=== PATIENT | male | born 1955 | race Caucasian/White ===

== ENCOUNTER 2017-07-15 13:56 | Emergency (ER) | payer OTHER ==
[~2017-07-15] VITALS: Ht 152.4 cm; Wt 68.0 kg
[2017-07-15 16:39] VITALS: Ht 152.4 cm; Wt 68.0 kg
[2017-07-15 20:01] VITALS: BP 174/92
== END 2017-07-15 20:01 | disposition home or self-care (01) ==
LOC: ED 13:56
DX: J98.01 Acute bronchospasm (principal); I10 Essential (primary) hypertension; E11.9 Type 2 diabetes mellitus without complications; L03.115 Cellulitis of right lower limb
CPT/HCPCS: 82962; J1100; J7620

== ENCOUNTER 2017-08-22 16:40 | Inpatient (IN) | payer OTHER ==
[~2017-08-22] VITALS: Ht 167.6 cm; Wt 65.3 kg
[2017-08-22] MEDS ORDERED: NOR10T (18:41)
[2017-08-22] MEDS ORDERED: METFORMIN HYDR500 M1 (18:41)
[2017-08-22] MEDS ORDERED: GLIPIZIDE2.5 M1 (18:41)
[2017-08-22] MEDS ORDERED: ATORVASTATIN CA40 M1 (18:41)
[2017-08-22 18:45] LABS: BASOPHIL % 0.4 % (0-2); PLATELET COUNT 155 x10^3mcL (130-400); RED CELL DISTRIBUTION WIDTH 12.8 % (11.5-14.5)
[2017-08-22 19:02] LABS: CALCIUM 9.1 mg/dL (8.5-10.1); CARBON DIOXIDE 27.7 mmol/L (21-32); CHLORIDE SERUM 99 mmol/L (98-107); CREATININE SERUM 0.7 mg/dL (0.7-1.3); GFR1 > 60 mL/min; GLUCOSE SERUM 315 mg/dL (74-106); POTASSIUM SERUM 3.7 mmol/L (3.5-5.1); SODIUM SERUM 137 mmol/L (136-145)
[2017-08-22 19:05] LABS: CK-MB 0.5 ng/mL (0-3.6)
[2017-08-22 19:15] LABS: ALKALINE PHOSPHATASE 100 U/L (46-116); ALT/SGPT 15 U/L (16-63); AST/SGOT 11 U/L (15-37); BILIRUBIN TOTAL 0.7 mg/dL (0.20-1.00); TOTAL PROTEIN, SERUM 7.5 g/dL (6.4-8.2)
[2017-08-22 19:19] LABS: ALBUMIN 3.2 g/dL (3.4-5.0)
[2017-08-22 19:24] LABS: ERYTHROCYTE SED RATE 54 mm/hr (0-20)
[2017-08-22 19:41] LABS: T3 TOTAL 0.54 ng/mL
[2017-08-22 19:58] LABS: C REACTIVE PROTEIN 19.4 mg/dL (<=0.9)
[2017-08-22 20:31] LABS: UA SPECIFIC GRAVITY 1.025 (1.005-1.035); microscopic required? YES; urine erythrocyte 2+ (NEGATIVE)
[2017-08-22 22:10] LABS: FREE T4 1.34 ng/dL (0.76-1.46); FREE THYROXINE INDEX 2.6 ug/dL (1.4-4.5); T4(THYROXINE) 7.2 ug/dL (4.7-13.3)
[2017-08-23 00:02] VITALS: BP 128/84
[2017-08-23 00:03] VITALS: BP 128/84
[2017-08-23 05:36] VITALS: BP 110/57
[2017-08-23] MEDS ORDERED: LIPI20 PO ×2 (05:53→13:16)
[2017-08-23 07:02] LABS: BASOPHIL % 0.4 % (0-2); PLATELET COUNT 132 x10^3mcL (130-400); RED CELL DISTRIBUTION WIDTH 12.8 % (11.5-14.5)
[2017-08-23 08:22] LABS: CALCIUM 8.1 mg/dL (8.5-10.1); CARBON DIOXIDE 26.6 mmol/L (21-32); CHLORIDE SERUM 103 mmol/L (98-107); CREATININE SERUM 0.6 mg/dL (0.7-1.3); GFR1 > 60 mL/min; GLUCOSE SERUM 217 mg/dL (74-106); MAGNESIUM 1.8 mg/dL (1.8-2.4); PHOSPHOROUS 2.4 mg/dL (2.5-4.9); POTASSIUM SERUM 3.5 mmol/L (3.5-5.1); SODIUM SERUM 138 mmol/L (136-145)
[2017-08-23 09:05] LABS: PHOSPHOROUS 2.8 mg/dL (2.5-4.9)
[2017-08-23 09:24] LABS: CHOLESTEROL/HDL RATIO 1.8
[2017-08-23 10:11] VITALS: BP 157/87
[2017-08-23] MEDS ORDERED: APAP/HYDROCODON1 T13 PO (13:16)
[2017-08-23] MEDS ORDERED: NPHOS PO (13:17)
[2017-08-23] MEDS ORDERED: BG FS (13:17)
[2017-08-23] MEDS ORDERED: TYL325 PO (13:17)
[2017-08-23] MEDS ORDERED: DEXPF IV (13:17)
[2017-08-23] MEDS ORDERED: COL100 PO (13:17)
[2017-08-23] MEDS ORDERED: LEVEMIR100 U/M1 SC (13:18)
[2017-08-23] MEDS ORDERED: ZOFI IV (13:18)
[2017-08-23] MEDS ORDERED: HUMULIN R100 U/1 M1 SC (13:18)
[2017-08-23] MEDS ORDERED: LAC PO (13:18)
[2017-08-23 16:56] VITALS: BP 134/77
[2017-08-23 17:49] VITALS: BP 134/77
[2017-08-23] MEDS ORDERED: CLEOCIN HCL300 MG PO (17:51)
[2017-08-23] MEDS ORDERED: NOVAPLUS LEVOF150 ML IV (17:51)
== END 2017-08-23 18:55 | disposition short-term general hospital (02) | DRG 570 ==
LOC: ED 16:40 → DU 22:42 → MU 08-23 16:33
PROVIDERS: Family Medicine; Specialist
PROC: 0JBR0ZZ Excision of Left Foot Subcutaneous Tissue and Fascia, Open Approach (ICD-10-PCS; principal; 2017-08-23)
DX: L03.116 Cellulitis of left lower limb (principal); N17.0 Acute kidney failure with tubular necrosis; E44.1 Mild protein-calorie malnutrition; I10 Essential (primary) hypertension; E11.65 Type 2 diabetes mellitus with hyperglycemia; E78.5 Hyperlipidemia, unspecified; D64.9 Anemia, unspecified; Z68.23 Body mass index [BMI] 23.0-23.9, adult; R31.9 Hematuria, unspecified; E83.39 Other disorders of phosphorus metabolism; E11.621 Type 2 diabetes mellitus with foot ulcer; L97.529 Non-pressure chronic ulcer of other part of left foot with unspecified severity
CPT/HCPCS: 36600; 82962; 83880; 84439; 90715; J1815; J1956; J2543; J3490; J7030; Q0092

== ENCOUNTER 2019-08-17 17:47 | Emergency (ER) | payer OTHER, MEDICAID ==
[~2019-08-17 17:47] MED LIST: APAP/HYDROCODON1 T13 PO; ATORVASTATIN CA40 M1; BG FS; CLEOCIN HCL300 MG PO; COL100 PO; DEXPF IV; GLIPIZIDE2.5 M1; HUMULIN R100 U/1 M1 SC; LAC PO; LEVEMIR100 U/M1 SC; LIPI20 PO; METFORMIN HYDR500 M1; NOR10T; NOVAPLUS LEVOF150 ML IV; NPHOS PO; TYL325 PO; ZOFI IV
[2019-08-17 19:10] LABS: BASOPHIL % 0.2 % (0-2); PLATELET COUNT 195 x10^3mcL (130-400); RED CELL DISTRIBUTION WIDTH 12.3 % (11.5-14.5)
[2019-08-17 19:18] LABS: CALCIUM 8.7 mg/dL (8.5-10.1); CARBON DIOXIDE 28.2 mmol/L (21-32); CHLORIDE SERUM 95 mmol/L (98-107); CREATININE SERUM 0.9 mg/dL (0.7-1.3); GFR1 > 60 mL/min; GLUCOSE SERUM 400 mg/dL (74-106); POTASSIUM SERUM 3.8 mmol/L (3.5-5.1); SODIUM SERUM 131 mmol/L (136-145)
[2019-08-17 19:28] LABS: ALKALINE PHOSPHATASE 99 U/L (46-116); ALT/SGPT 12 U/L (16-63); AST/SGOT 8 U/L (15-37); BILIRUBIN TOTAL 0.59 mg/dL (0.20-1.00); HDL CHOLESTEROL 46 mg/dL (40-60); TOTAL PROTEIN, SERUM 7.3 g/dL (6.4-8.2)
[2019-08-17 19:28] LABS: microscopic required? YES; urine erythrocyte 2+ (NEGATIVE)
[2019-08-17 19:31] LABS: CHOLESTEROL 107 mg/dL (<200)
[2019-08-17 23:11] VITALS: BP 121/65
== END 2019-08-18 01:15 | disposition short-term general hospital (02) ==
LOC: ED 17:47
PROVIDERS: Emergency Medicine
DX: E11.65 Type 2 diabetes mellitus with hyperglycemia (principal); L03.031 Cellulitis of right toe; R50.9 Fever, unspecified; I10 Essential (primary) hypertension
CPT/HCPCS: 82962; 87804; J1815; J7030

== ENCOUNTER 2019-08-24 12:15 | Emergency (ER) | payer OTHER, MEDICAID ==
[~2019-08-24] VITALS: Ht 154.9 cm; Wt 69.4 kg
[2019-08-24 12:22] VITALS: Ht 154.9 cm; Wt 69.4 kg
[2019-08-24 12:57] LABS: BASOPHIL % 0.2 % (0-2); PLATELET COUNT 244 x10^3mcL (130-400); RED CELL DISTRIBUTION WIDTH 12.2 % (11.5-14.5)
[2019-08-24 13:03] LABS: CALCIUM 8.1 mg/dL (8.5-10.1); CARBON DIOXIDE 25.5 mmol/L (21-32); CHLORIDE SERUM 100 mmol/L (98-107); CREATININE SERUM 0.7 mg/dL (0.7-1.3); GFR1 > 60 mL/min; GLUCOSE SERUM 194 mg/dL (74-106); POTASSIUM SERUM 3.4 mmol/L (3.5-5.1); SODIUM SERUM 139 mmol/L (136-145)
[2019-08-24 13:12] LABS: ALBUMIN 2.2 g/dL (3.4-5.0); ALKALINE PHOSPHATASE 90 U/L (46-116); ALT/SGPT 25 U/L (16-63); AST/SGOT 42 U/L (15-37); BILIRUBIN TOTAL 0.6 mg/dL (0.20-1.00); TOTAL PROTEIN, SERUM 6.6 g/dL (6.4-8.2)
[2019-08-24 15:57] VITALS: BP 147/69
== END 2019-08-24 15:57 | disposition short-term general hospital (02) ==
LOC: ED 12:15
PROVIDERS: Emergency Medicine
DX: A41.9 Sepsis, unspecified organism (principal); E11.52 Type 2 diabetes mellitus with diabetic peripheral angiopathy with gangrene; I96 Gangrene, not elsewhere classified; I10 Essential (primary) hypertension
CPT/HCPCS: 82962; 87804; J2543; J7030

== ENCOUNTER 2020-01-31 18:03 | Inpatient (IN) | payer OTHER, MEDICAID ==
[~2020-01-31] VITALS: Ht 152.4 cm; Wt 67.1 kg
--- NOTE | 2020-01-31 18:08 | NUR ---
PT BIBA FROM HOME DUE TO INCREASED DIZZINESS AND LETHARGY. PER MEDIC PT WAS HYPOTENSIVE IN FEILD SYS 80S THEN TO 123 SYS. PER MEDIC PT WAS PALE COOL DIAPHORETIC, BG 142. MEDIC STS THAT HE GAVE 100CC BOLUS NS. PT ARRIVED AAOX4, VSS, RESP E/U. PT STS THAT HE HAS RANDALL FLANK PAIN WITH DIARRHEA FOR 2 DAYS. PT STS THAT HE WENT TO THE [facility] 2 MONTHS AGO AND "WAS NOT SICK". PT STS THAT HE WAS RELEASED FROM THE HOSPITAL ON SUNDAY AND HAS NOT FELT BETTER SINCE. PT STS THAT HE "HIT HIS RT FOOT" AND THATS WHY HE WAS HOSPITALIZED. NOTED EDEMA TO RT FOOT. VSS. RESP E/U. WILL CONTINUE TO MONITOR.
--- NOTE | 2020-01-31 18:43 | NUR ---
PT ATTMEPTING TO URINATE.
[2020-01-31 18:50] LABS: BASOPHIL % 0.3 % (0-2); PLATELET COUNT 145 x10^3mcL (130-400)
[2020-01-31 18:54] LABS: microscopic required? NO
[2020-01-31 19:00] LABS: urine erythrocyte NEGATIVE (NEGATIVE)
--- NOTE | 2020-01-31 19:02 | NUR ---
URINE SENT TO LAB.
--- NOTE | 2020-01-31 19:16 | NUR ---
REPORT GIVEN TO EDMUNDO ESPINOZA TO ASSUME CARE OF PT.
--- NOTE | 2020-01-31 19:22 | NUR ---
ASSUMING CARE OF PT AT THIS TIME. PT AWAKE AND ALERT. A/O TO NAME, . RESP EVEN AND U NLABORED. PT STATES THAT CHRONIC BACK PAIN 11/22. AWARE. PT ON MONITOR. NO ACUTE DISTRESS AT THIS TIME. WILL CONT TO MONITOR.
[2020-01-31 19:35] LABS: CALCIUM 8.8 mg/dL (8.5-10.1); CARBON DIOXIDE 19.1 mmol/L (21-32); CHLORIDE SERUM 106 mmol/L (98-107); CREATININE SERUM 2.3 mg/dL (0.7-1.3); GFR1 30 mL/min; GLUCOSE SERUM 147 mg/dL (74-106); POTASSIUM SERUM 4.9 mmol/L (3.5-5.1); SODIUM SERUM 143 mmol/L (136-145)
--- NOTE | 2020-01-31 19:38 | NUR ---
PT MOVED TO BED 14.
[2020-01-31 19:51] LABS: ALBUMIN 3.5 g/dL (3.4-5.0); ALKALINE PHOSPHATASE 63 U/L (46-116); ALT/SGPT 16 U/L (16-63); AST/SGOT 21 U/L (15-37); BILIRUBIN TOTAL 0.4 mg/dL (0.20-1.00); C REACTIVE PROTEIN 5.9 mg/dL (<=0.9); HDL CHOLESTEROL 41 mg/dL (40-60); LACTIC DEHYDROGENASE (LDH) 226 U/L (100-190); LIPASE 189 IU/L (73-393); T4(THYROXINE) 6.3 ug/dL (4.7-13.3); TOTAL PROTEIN, SERUM 7.2 g/dL (6.4-8.2)
[2020-01-31 19:59] LABS: CHOLESTEROL 99 mg/dL (<200)
[2020-01-31 20:07] LABS: AMPHETAMINE QUAL UR NONE DETECTED (See below)
--- NOTE | 2020-01-31 20:18 | NUR ---
PT RESTING IN BED WITH NO SIGNS OF DISTRESS.
--- NOTE | 2020-01-31 20:41 | NUR ---
PT REFUSING TO HAVE IV FLUIDS/MEDS, STATING "NO, NO, NO. I WILL DESTROY IT, I WILL THROW IT AWAY." WILL INFORM
--- NOTE | 2020-01-31 21:12 | NUR ---
SPOKE WITH DR POSADA REGARDING PT REFUSING ALL MEDS/TESTS.
--- NOTE | 2020-01-31 21:20 | NUR ---
PT REFUSED ARTERIAL BLOOD GAS AT 20:20 WHILE IN ED.
--- NOTE | 2020-01-31 21:24 | NUR ---
DR POSADA AT BEDSIDE SPEAKING WITH PT.
--- NOTE | 2020-01-31 21:33 | NUR ---
ATTEMPTED TO CALL REPORT TO EDMUNDO ESPINOZA WHO STATED SHE WILL CALL BACK WHEN AVAILABLE.
--- NOTE | 2020-01-31 22:08 | NUR ---
PT STATING HE DOES NOT WANT TO STAY. MESSAGE WAS LEFT WITH POC/NEXT OF KIN TO CALL REGARDING SITUATION.
--- NOTE | 2020-01-31 22:24 | NUR ---
SPOKE WITH EDMUNDO ESPINOZA FOR REPORT AND MADE HER AWARE OF PT WANTING TO LEAVE AMA.
--- NOTE | 2020-01-31 22:24 | NUR ---
SPOKE WITH ER NURSE NESTOR REGARDING PATIENT WHO MAY BE ADMITTED. SHE STATED THAT PATIENT IS CURRENTLY REFUSING TREATMENT, PATIENT HAS HAD LEVAQUIN AND NORMAL SALINE INFUSION @ THIS TIME. SHE STATED THAT PATIENT DOES NOT WANT TO BE ADMITTED, RESIDENT PHYSICIAN HAS SPOKE WITH PATIENT REGARDING ADMISSION, PATIENT IS STILL REFUSING AND WISHES TO CALL FAMILY, CURRENTLY IN THE PROCESS OF TRYING TO CALL FAMILY. SHE STATED THAT SHE WILL CALL BACK TO INFORM IF PATIENT WILL BE ADMITTED OR NOT, WILL FOLLOW-UP.
--- NOTE | 2020-01-31 22:47 | NUR ---
ASSISTED PT RESTROOM. PT STILL REFUSING CARE AND BEING VERBALLY ABUSE WITH CAREGIVER.
--- NOTE | 2020-01-31 23:54 | NUR ---
PER MD POSADA PT DECIDED TO STAY IN HOSPITAL AND AGREED TO GET IV FLUIDS. PER MD POSADA GIVE PT TYLENOL FOR PAIN. PER SHE IS PUTTING IN A DIABETIC DIET ORDER FOR PT BUT IT IS OKAY TO PROVIDE PT WITH FOOD AT THIS TIME. PRIMARY RN VA MADE AWARE.
[2020-02-01 00:06] LABS: MAGNESIUM 1.9 mg/dL (1.8-2.4); PHOSPHOROUS 5.1 mg/dL (2.5-4.9)
[2020-02-01 00:12] LABS: CHOLESTEROL/HDL RATIO 2.5
--- NOTE | 2020-02-01 00:13 | NUR ---
PT NOW CALM AND COOPERATIVE WITH CAREGIVERS. PT AGREED TO TAKE ALL MEDICATIONS. PT GIVEN SANDWICH PER REQUEST AND OK WITH
--- NOTE | 2020-02-01 00:15 | NUR ---
EDMUNDO ESPINOZA GIVEN UPDATE ON PLAN OF CARE.
--- NOTE | 2020-02-01 00:18 | NUR ---
ER NURSE VA CALLED AND STATED THAT PATIENT IS MORE COOPERATIVE AND WILL BE ADMITTED.
--- NOTE | 2020-02-01 01:00 | NUR ---
0030 PATIENT ARRIVED VIA GURNEY FROM ER, ACCOMPANIED BY RN AND REPLANTER. 0100 PATIENT RESTING IN BED, A/O X4, VERBALLY RESPONSIVE. BREATHING E/U ON ROOM AIR, SPO2 97%, PRESENTS NO COUGH, R/O COVID PATIENT, PATIENT REFUSED COVID TEST SWAB, WILL NOTIFY PHYSICIAN. TELE#18, HR 114, SINUS TACHY, DENIES CHEST PAIN. ABD SOFT AND ROUND. NO EDEMA NOTED. PATIENT C/O OF 10/10 R FLANK PAIN, HE STATED THAT HE FEELS PAIN UPON MOVEMENT AND FEELS BETTER WHEN HE RESTS, WILL GIVE PAIN MED PRN. AMBULATORY, USES CANE @ BEDSIDE. 20G IV RFA INTACT, FLUSHED AND SALINE LOCKED. ORIENTED PATIENT TO SURROUNDINGS AND DEVICES, CALL LIGHT WITHIN REACH, BED IN LOWEST POSITION. WILL CONTINUE TO MONITOR.
--- NOTE | 2020-02-01 01:30 | NUR ---
PATIENT MOVED TO ROOM 235, ON DROPLET/CONTACT PRECAUTIONS FOR R/O COVID, PATIENT STILL REFUSED COVID TEST SWAB, STATING HE "DOES NOT WANT IT". WILL NOTIFY PHYSICIAN. CALL LIGHT WITHIN REACH, WILL CONTINUE TO MONITOR.
--- NOTE | 2020-02-01 01:55 | NUR ---
DR. BARRETT MADE AWARE OF PATIENT'S CURRENT CONDITION AND RECENT VITAL SIGNS. HE STATED TO GIVE IV BENADRYL 25 MG.
--- NOTE | 2020-02-01 03:01 | NUR ---
PATIENT HAD REFUSED COVID TEST SWAB AND THERE IS CURRENTLY NO MRSA SWAB ORDER IN PLACE. MADE A NOTE TO RESIDENT PHYSICIAN, WILL WAIT TO HEAR BACK AND FOLLOW-UP.
[2020-02-01 03:15] VITALS: BP 149/81
--- NOTE | 2020-02-01 04:40 | NUR ---
CALLED RESIDENT PHYSICIAN PHONE, DR. POSADA ANSWERED AND MADE AWARE THAT RESIDENT ROUNDING HASN'T BEEN DONE IN THE PAST FEW HOURS, AND THERE ARE ORDER REQEUSTS SINCE 229. SHE STATED THAT SHE WILL LET DR. MCLAUGHLIN KNOW.
--- NOTE | 2020-02-01 05:13 | NUR ---
DR. MCLAUGHLIN MADE AWARE OF PATIENT'S REFUSAL AND REQUEST TO CHANGE COVID TEST ORDER FROM ED TO INPATIENT WELL AND MY REQUEST FOR PHYSICIAN TO SPEAK WITH PATIENT REGARDING PATIENT'S REFUSAL.
[2020-02-01 05:25] VITALS: BP 118/66
--- NOTE | 2020-02-01 06:10 | NUR ---
PAGED DR. MLCAUGHLIN TO ASK IF HE WAS ABLE TO TALK WITH THE PATIENT REGARDING HIS REFUSAL FOR THE COVID TEST SWAB. WAITING TO HEAR BACK.
--- NOTE | 2020-02-01 06:20 | NUR ---
DR. MCLAUGHLIN SPOKE WITH PATIENT REGARDING REFUSAL OF COVID TEST SWAB. DR. MCLAUGHLIN STATED THAT PATIENT IS "OKAY" TO TAKE THE TEST. WILL ATTEMPT COVID TEST SWAB.
--- NOTE | 2020-02-01 06:30 | NUR ---
PATIENT RESTING IN BED WITH EYES CLOSED. BREATHING E/U ON ROOM AIR, 99%, ON DROPLET/CONTACT PRECAUTIONS, FOR R/O COVID, ATTEMPTED TO DO COVID TEST SWAB BUT PATIENT STATED THAT THEY ARE TIRED AND WANT TO GO TO SLEEP BEFORE CLOSING EYES, WILL ENDORSE TO DAY NURSE. GAVE NORCO PRN FOR R SIDE PAIN /. CALL LIGHT WITHIN REACH, SAFETY AND DROPLET PRECAUTIONS MAINTAINED THROUGHOUT SHIFT. WILL ENDORSE CARE TO DAY NURSE.
--- NOTE | 2020-02-01 07:05 | NUR ---
RECIEVED PT FROM NIGHT RN. AAOX4, SPEECH CLEAR. DENIES US/DIZZINESS. ALTHOUGH, INAPPROPRIATE RESPONSE AT TIMES. RES E/U, DENIES SOB ON RA. NO RESPIRATORY DISTRESS NOTED. TELE MONITOR 18 SHOWING SR, DENIES CP/PRESSURE. PERIPHERAL PULSES PALPABLE W NO EDEMA NOTED. ABDOMEN SOFT. DENIES ABDOMINAL PAIN. DENIES N/V/D/C. VOIDS IN BATHROOM WITHOUT DIFFICULTY. AMBULATORY AT BASELINE. IV SITE TO RFA INFUSING NS AT 100 ML/HR W NO S/S INFILTRATION NOTED.
[2020-02-01 09:11] VITALS: BP 113/68
[2020-02-01 16:40] VITALS: Ht 152.4 cm; Wt 67.1 kg
[2020-02-01 17:29] VITALS: BP 150/85
--- NOTE | 2020-02-01 19:36 | NUR ---
NO SIGNIFICANT CHANGES NOTED. PT IN BED WITHUOT APPARENT DISTRESS. WILL ENDORSE CARE TO NEXT SHIFT
--- NOTE | 2020-02-01 20:00 | NUR ---
PT A/A/O X4. DENIES DIZZINESS AND HEADACHE. BREATH SOUNDS CLEAR. BREATHING EVEN AND UNLABORED ON ROOM AIR. DENIES CHEST PAIN AND PRESSURE. BOWEL SOUNDS ACTIVE. NO C/O N/V AND ABD PAIN. IV INTACT ON THE RIGHT FOREARM INFUSING WITH NS AT 125 ML/HR. MADE PT COMFORTABLE. CANE AT BEDSIDE. PLACED CALL LIGHT WITH IN REACH. WILL CONTINUE TO MONITOR.
--- NOTE | 2020-02-01 20:48 | NUR ---
PT C/O BACK PAIN. GAVE PT NORCO PO. PT TOLERATED IT WELL. WILL CONTINUE TO MONITOR.
--- NOTE | 2020-02-01 21:00 | NUR ---
PT REFUSED TELE MONITOR TO BE PUT ON HIM. DR. MCKEON NOTIFIED AND SPOKE WITH THE PT. PT STILL REFUSE TO PUT TELE MONITOR ON. PT STATED "MY PROBLEM IS MY BACK NOT MY HEART. [facility] BEEN [facility] AND [facility] NEVER WORN IT. I DONT NEED IT". WILL CONTINUE TO MONITOR.
[2020-02-01 21:47] VITALS: BP 139/79
--- NOTE | 2020-02-02 01:45 | NUR ---
PT RESTING WITH EYES CLOSED. NO DISTRESS AND DISCOMFORT NOTED. WILL CONTINUE TO MONITOR.
[2020-02-02 05:10] VITALS: BP 136/71
--- NOTE | 2020-02-02 06:06 | NUR ---
PT RESTING WITH EYES CLOSED. AROUSABLE WITH VERBAL STIMULI. PT IRRITATED BEING WAKEN UP TO RECEIVE MEDICATION. PT STATED " LEAVE MEDICATION THERE." PT WANTED US TO LEAVE MEDICATION ON THE SIDE TABLE. INFORMED THE PT WE CAN NOT LEAVE UNLESS HE TAKES THE MEDICATION AND MEDICATION IS A SCHEDULED DOSE. PT C/O LIGHTS BEING TURNED ON AND NOT BEING LEFT ALONE. OFFERED THE GLIPIZIDE PO AGAIN. PT REFUSED TO TAKE IT SAYING HE IS SLEEPING. TOLD THE PT IF HE WONT TAKE MEDICATION. IT WILL BE CONSIDERED REFUSED BY YOU WITNESSED BY GORDON ESPINOZA. PT SAID OK. WILL ENDORSE TO THE AM NURSE ACCORDINGLY.
[2020-02-02 07:24] LABS: BASOPHIL % 0.5 % (0-2); PLATELET COUNT 137 x10^3mcL (130-400)
[2020-02-02 07:34] LABS: CALCIUM 8.3 mg/dL (8.5-10.1); CARBON DIOXIDE 22.3 mmol/L (21-32); CHLORIDE SERUM 111 mmol/L (98-107); CREATININE SERUM 0.8 mg/dL (0.7-1.3); GFR1 > 60 mL/min; GLUCOSE SERUM 134 mg/dL (74-106); MAGNESIUM 1.9 mg/dL (1.8-2.4); POTASSIUM SERUM 4.4 mmol/L (3.5-5.1); SODIUM SERUM 143 mmol/L (136-145)
[2020-02-02 07:58] LABS: RED CELL DISTRIBUTION WIDTH 16.5 % (11.5-14.5)
--- NOTE | 2020-02-02 08:00 | NUR ---
PT RECEIVED FROM PM NURSE. PT RESTING COMFORTABLY IN BED AT THIS TIME. NO FACIAL DISTRESS OR SOB NOTED. PT IS A/OX4. ABLE TO MAKE NEEDS KNOWN. DENIES US/DIZZINESS. LUNG SOUNDS CTA. BREATHING E/U ON RA. REFUSED TELE MONITOR. EXPLAINED RISKS/BENEFITS. STILL REFUSED. DR AWARE. DENIES CP/PRESSURE. PULSES EVEN AND PALPABLE. NO EDEMA NOTED. ACTIVE BS X4. ABD SOFT AND ROUND. DENIES N/V/D. VOIDS FREELY USING URINAL AT BEDSIDE. GENERALIZED WEAKNESS NOTED. AMBULATORY. CANE BASELINE. SKIN INTACT. NO C/O PAIN AT THIS TIME. IV 20G TO RFA CURRENTLY RUNNING 1/2 NS AT 125CC/HR. BED AT LOWEST POSITION. CALL BUTTON WITHIN REACH. WILL CONTINUE TO MONITOR.
[2020-02-02 10:43] VITALS: BP 161/84
[2020-02-02 12:20] VITALS: BP 161/84
--- NOTE | 2020-02-02 14:48 | NUR ---
REVIEWED DISCHARGE INSTRUCTIONS WITH PATIENT. PATIENT VERBALIZED UNDERSTANDING. PATIENT DISCHARGED VIA WHEELCHAIR WITH INSTRUCTIONS AND MEDICATIONS. IV REMOVED. TELE HANDED BACK TO HOME ASSESSMENT NURSE. PATIENT LEFT HOSPITAL TO HOME SELF CARE.
== END 2020-02-02 14:52 | disposition home or self-care (01) | DRG 640 ==
LOC: ED 18:03 → DU 20:24
PROVIDERS: Emergency Medicine; ADMIT Internal Medicine; ATTEND Internal Medicine
DX: E86.0 Dehydration (principal); N17.0 Acute kidney failure with tubular necrosis; N18.4 Chronic kidney disease, stage 4 (severe); I45.10 Unspecified right bundle-branch block; I12.9 Hypertensive chronic kidney disease with stage 1 through stage 4 chronic kidney disease, or unspecified chronic kidney disease; E11.22 Type 2 diabetes mellitus with diabetic chronic kidney disease; D64.9 Anemia, unspecified; G89.29 Other chronic pain; M54.9 Dorsalgia, unspecified; Z89.411 Acquired absence of right great toe; Z79.84 Long term (current) use of oral hypoglycemic drugs; Z79.899 Other long term (current) drug therapy
CPT/HCPCS: 82962; 83880; 87804; G0378; J1956; J7030; Q0092; U0003-CS

== ENCOUNTER 2020-02-03 19:40 | Emergency (ER) | payer OTHER, MEDICAID ==
[~2020-02-03] VITALS: Ht 152.4 cm; Wt 67.1 kg
[2020-02-03 19:44] VITALS: Ht 152.4 cm; Wt 67.1 kg
[2020-02-03 20:21] LABS: BASOPHIL % 0.5 % (0-2); PLATELET COUNT 183 x10^3mcL (130-400); RED CELL DISTRIBUTION WIDTH 15.9 % (11.5-14.5)
[2020-02-03 20:54] LABS: ALKALINE PHOSPHATASE 77 U/L (46-116); ALT/SGPT 18 U/L (16-63); AST/SGOT 12 U/L (15-37); BILIRUBIN TOTAL 0.23 mg/dL (0.20-1.00); CALCIUM 9.2 mg/dL (8.5-10.1); CARBON DIOXIDE 24.8 mmol/L (21-32); CHLORIDE SERUM 107 mmol/L (98-107); CREATININE SERUM 1.1 mg/dL (0.7-1.3); GFR1 > 60 mL/min; GLUCOSE SERUM 155 mg/dL (74-106); HDL CHOLESTEROL 37 mg/dL (40-60); LIPASE 188 IU/L (73-393); POTASSIUM SERUM 4.4 mmol/L (3.5-5.1); SODIUM SERUM 142 mmol/L (136-145); TOTAL PROTEIN, SERUM 7.2 g/dL (6.4-8.2); TRIGLYCERIDES 75 mg/dL (<150)
[2020-02-03 20:55] LABS: ALBUMIN 3.3 g/dL (3.4-5.0); CHOLESTEROL 96 mg/dL (<200); CHOLESTEROL/HDL RATIO 2.6
[2020-02-03 21:00] LABS: FREE T4 1.18 ng/dL (0.76-1.46); FREE THYROXINE INDEX 2.6 ug/dL (1.4-4.5); T4(THYROXINE) 7.1 ug/dL (4.7-13.3)
[2020-02-03 22:24] LABS: T3 TOTAL 1.01 ng/mL
[2020-02-03 23:48] VITALS: BP 143/65
== END 2020-02-03 23:48 | disposition home or self-care (01) ==
LOC: ED 19:40
PROVIDERS: Specialist
DX: R42 Dizziness and giddiness (principal); I10 Essential (primary) hypertension; E11.9 Type 2 diabetes mellitus without complications
CPT/HCPCS: 83880; 84439

== ENCOUNTER 2020-02-15 18:14 | Emergency (ER) | payer OTHER, MEDICAID ==
[~2020-02-15] VITALS: Ht 165.1 cm; Wt 86.2 kg
[2020-02-15 18:27] VITALS: Ht 165.1 cm; Wt 86.2 kg
[2020-02-16 04:31] LABS: BASOPHIL % 0.5 % (0-2); PLATELET COUNT 266 x10^3mcL (130-400); RED CELL DISTRIBUTION WIDTH 14.5 % (11.5-14.5)
[2020-02-16 04:42] LABS: CARBON DIOXIDE 23.2 mmol/L (21-32); CHLORIDE SERUM 106 mmol/L (98-107); CREATININE SERUM 0.9 mg/dL (0.7-1.3); GFR1 > 60 mL/min; GLUCOSE SERUM 73 mg/dL (74-106); POTASSIUM SERUM 4.3 mmol/L (3.5-5.1); SODIUM SERUM 139 mmol/L (136-145)
[2020-02-16 04:50] LABS: ALBUMIN 2.9 g/dL (3.4-5.0); ALKALINE PHOSPHATASE 84 U/L (46-116); ALT/SGPT 18 U/L (16-63); AST/SGOT 19 U/L (15-37); BILIRUBIN TOTAL 0.2 mg/dL (0.20-1.00); TOTAL PROTEIN, SERUM 7.8 g/dL (6.4-8.2)
[2020-02-16 09:45] VITALS: BP 158/71
== END 2020-02-16 08:45 | disposition left against medical advice (07) ==
LOC: ED 18:14
PROVIDERS: Emergency Medicine
DX: R55 Syncope and collapse (principal); D64.9 Anemia, unspecified; I10 Essential (primary) hypertension; E11.9 Type 2 diabetes mellitus without complications; Z98.890 Other specified postprocedural states
CPT/HCPCS: C9113; Q0092

== ENCOUNTER 2020-02-18 17:14 | Emergency (ER) | payer OTHER, MEDICAID ==
[~2020-02-18] VITALS: Ht 167.6 cm; Wt 77.1 kg
[2020-02-18 18:05] LABS: BASOPHIL % 0.4 % (0-2); PLATELET COUNT 300 x10^3mcL (130-400); RED CELL DISTRIBUTION WIDTH 14.4 % (11.5-14.5)
[2020-02-18 18:17] LABS: CALCIUM 8.9 mg/dL (8.5-10.1); CARBON DIOXIDE 19.6 mmol/L (21-32); CHLORIDE SERUM 101 mmol/L (98-107); CREATININE SERUM 1.3 mg/dL (0.7-1.3); GFR1 59 mL/min; GLUCOSE SERUM 314 mg/dL (74-106); POTASSIUM SERUM 5.1 mmol/L (3.5-5.1); SODIUM SERUM 134 mmol/L (136-145)
[2020-02-18 18:22] LABS: ALBUMIN 2.9 g/dL (3.4-5.0); ALKALINE PHOSPHATASE 96 U/L (46-116); ALT/SGPT 17 U/L (16-63); AST/SGOT 12 U/L (15-37); BILIRUBIN TOTAL 0.3 mg/dL (0.20-1.00); CHOLESTEROL 106 mg/dL (<200); TOTAL PROTEIN, SERUM 7.9 g/dL (6.4-8.2)
[2020-02-18 21:11] VITALS: BP 137/80
== END 2020-02-18 21:11 | disposition home or self-care (01) ==
LOC: ED 17:14
PROVIDERS: Specialist
DX: S09.8XXA Other specified injuries of head, initial encounter (principal); D64.9 Anemia, unspecified; E11.65 Type 2 diabetes mellitus with hyperglycemia; I10 Essential (primary) hypertension; E11.9 Type 2 diabetes mellitus without complications; E86.0 Dehydration; Z89.421 Acquired absence of other right toe(s); W01.0XXA Fall on same level from slipping, tripping and stumbling without subsequent striking against object, initial encounter; Y93.89 Activity, other specified; Y92.89 Other specified places as the place of occurrence of the external cause; Y99.8 Other external cause status
CPT/HCPCS: 82962; G0480; J7030; Q0092

== ENCOUNTER 2020-02-23 18:28 | Inpatient (IN) | payer OTHER, MEDICAID ==
[~2020-02-23] VITALS: Ht 162.6 cm; Wt 73.5 kg
[2020-02-23 18:46] VITALS: Ht 162.6 cm; Wt 73.5 kg
--- NOTE | 2020-02-23 18:56 | NUR ---
PT BIB AMBULANCE BLS [facility] FOR ALOC. PER MEDIC PT WAS FOUND ON [address] ON THE FLOOR WHEN A BY STANDER NOTICED HIM AND CONTACTED 911, PTS HX: DM, HTN, BS 240 AND EKG SHOWED RIGHT BUNDLE BRANCH. PT AAOX2 (SELF/PLACE) PT UNABLE TO RECALL YEAR OR PRESIDENT. PT ALSO REPORTS "I WAS WALKING TO THE GROCERY STORE AND NO ONE WANTED TO GIVE ME WATER. I LIVE WITH MY FRIENDS AND ALL MY FAMILY ARE IN [place]". ABBRAASIONS NOTED TO BILATERAL KNEES. RIGHT TOE AMPUATED NOTED. PT PALCED ON FULL CM, SINUS TACH NOTED. AWIATING MD CROSS. WILL CONTINUE TO MONITOR.
--- NOTE | 2020-02-23 19:06 | NUR ---
REPORT GIVEN TO EDY MARTÍNEZ RN TO ASSUME CARE OF PT AT THIS TIME.
--- NOTE | 2020-02-23 19:25 | NUR ---
RECEIVED REPORT FROM ISABELLE ESPINOZA, I WILL ASSUME CARE OF PT AT HTIS TIME.
--- NOTE | 2020-02-23 19:31 | NUR ---
PT IS AAOX4, NAD NOTED. PT STATES HE WAS SLEEPING IN WHEELCHAIR AND IS NOT SURE WHY THE AMBULANCE BROUGHT HIM HERE. PT STATES HE HAD A FALL/INJURY Sunday and HIT HIS HEAD. NO BLEEDING OR DRY BLOOD NOTED. PT ON FULL CM, VSS. PT DENIES ANY MED HX AT HTIS TIME. VASILE MILLER TO MONITOR PT.
--- NOTE | 2020-02-23 19:50 | NUR ---
PT TAKEN VIA GURNEY TO CT SCAN BY BIPIN.
[2020-02-23 19:57] LABS: BASOPHIL % 0.2 % (0-2); PLATELET COUNT 302 x10^3mcL (130-400)
[2020-02-23 20:12] LABS: CALCIUM 9.4 mg/dL (8.5-10.1); CHLORIDE SERUM 100 mmol/L (98-107); CREATININE SERUM 1.7 mg/dL (0.7-1.3); GFR1 43 mL/min; GLUCOSE SERUM 228 mg/dL (74-106); POTASSIUM SERUM 5.5 mmol/L (3.5-5.1); SODIUM SERUM 134 mmol/L (136-145)
[2020-02-23 20:18] LABS: ALKALINE PHOSPHATASE 112 U/L (46-116); ALT/SGPT 17 U/L (16-63); AST/SGOT 11 U/L (15-37); BILIRUBIN TOTAL 0.36 mg/dL (0.20-1.00)
[2020-02-23 20:19] LABS: ALBUMIN 2.8 g/dL (3.4-5.0); TOTAL PROTEIN, SERUM 8.3 g/dL (6.4-8.2)
--- NOTE | 2020-02-23 20:23 | NUR ---
ASKED PT FOR URIEN HE STATED HE CANT URINATE RIGHT NOW.
--- NOTE | 2020-02-23 21:40 | NUR ---
PT IS IN BED AWAKE AND ALERT BUT DOES NOT UNDERSTAND WHY HE IS HERE. PT ON FULL CM, VSS.
--- NOTE | 2020-02-23 22:03 | NUR ---
ABLE TO OBTAIN URINE FROM PT AT HTIS TIME.
[2020-02-23 22:17] LABS: MAGNESIUM 1.4 mg/dL (1.8-2.4); PHOSPHOROUS 4.5 mg/dL (2.5-4.9)
[2020-02-23 22:23] LABS: CHOLESTEROL/HDL RATIO 3.3; T3 TOTAL 0.62 ng/mL
--- NOTE | 2020-02-23 22:25 | NUR ---
GAVE HANDOFF REPORT TO JERRY ESPINOZA FOR FURTHER CAR WEOF PT. SHE WILL ASSUME CAR EOF PT UPON TRANSFER COMPLETION.
[2020-02-23 22:28] LABS: FREE T4 1.5 ng/dL (0.76-1.46); FREE THYROXINE INDEX 2.7 ug/dL (1.4-4.5); T4(THYROXINE) 6.9 ug/dL (4.7-13.3)
--- NOTE | 2020-02-23 22:41 | NUR ---
RECEIVED PT VIA GURNEY FROM E/D, ACCOMPANIED BY RN AND TRANSPORTER. PT A/A/O X 2 (PERSON/PLACE), UNCOOPERATIVE TO CARE, AND REFUSES TO ANSWER MOST OF THE ADMISSION QUESTIONS. ON TELE # 37, ST, HR 115, DENIES CHEST PAIN OR DISCOMFORT AT THIS TIME. REFUSES TO BE ASSESSED FOR CIRCULATION, GI, , MUSCULOSKELETAL, AND SKIN SYSTEMS. PER REPORT, PT IS AMBULATORY W/ FWW OR W/C. ALSO, THAT PT HAS RANDALL KNEE ABRASIONS (WHICH PT REFUSED TO HAVE PHOTOS TAKEN OF), AND R GREAT TOE AMPUTATION. WHEN ASKED, PT STATES THAT HE LIVES WITH A FREIND NAMED KARINA YOUNG FOR "18 YEARS", AND THAT HE IS NOT HOMELESS, BUT REFUSES TO STATE WHERE HE ACTUALLY LIVES. NO ACUTE RESPIRATORY DISTRESS NOTED. IV SITE TO LFA 20G, CDI. UNABLE TO ORIENT PT D/T PT'S REFUSAL TO COOPERATE. SIDE RAILS UP X 2, BED IN LOW POSITION, CALL LIGHT WITHIN REACH. WILL ENDORSE TO OLGA BALDERAS.
[2020-02-23 23:19] VITALS: BP 150/65
--- NOTE | 2020-02-23 23:42 | NUR ---
PATIENT REFUSED TO TAKE LOKELMA 10MG PO, DR MCKEON MADE AWARE AND WILL TALK TO PATIENT.
[2020-02-24 00:03] LABS: microscopic required? YES; urine erythrocyte TRACE (NEGATIVE)
--- NOTE | 2020-02-24 00:13 | NUR ---
PATIENT REFUSED TELE MONITOR, REFUSAL TO PERMIT MEDICAL TREATMENT SIGNED BY PATIENT, MD MADE AWARE.
[2020-02-24 00:41] LABS: AMPHETAMINE QUAL UR NONE DETECTED (See below)
[2020-02-24 04:50] VITALS: BP 140/69
--- NOTE | 2020-02-24 05:19 | NUR ---
AWAKE MOST OF THE TIME, UNCOOPERATIVE WITH CARE. NO INDICATION OF PAIN AND DISCOMFORT NOTED THE ENTIRE SHIFT.
--- NOTE | 2020-02-24 06:20 | NUR ---
CHECKED BS-388 PATIENT REFUSED RISS COVERAGE, MD AWARE.
--- NOTE | 2020-02-24 07:35 | NUR ---
RECEIVED PT FROM CAN PATCHER. ASSESSED AND DOCUMENTED. DENIES ANY PAIN THIS TIME. PT IS NOT COOPERATIVE FOR COMPLETING ASSESSMENT, DOCTORS AWARE, REFUSING TREATMENTS. SAFTEY PRECAUTIONS ARE IN PLACE. WILL MONITOR.
[2020-02-24 09:03] LABS: CARBON DIOXIDE 25.6 mmol/L (21-32); CHLORIDE SERUM 101 mmol/L (98-107); CREATININE SERUM 1.1 mg/dL (0.7-1.3); GFR1 > 60 mL/min; GLUCOSE SERUM 369 mg/dL (74-106); MAGNESIUM 1.8 mg/dL (1.8-2.4); PHOSPHOROUS 3.4 mg/dL (2.5-4.9); POTASSIUM SERUM 4.9 mmol/L (3.5-5.1); SODIUM SERUM 134 mmol/L (136-145)
[2020-02-24 09:29] VITALS: BP 134/62
--- NOTE | 2020-02-24 09:50 | NUR ---
AND RESIDENTS DID ROUNDS, INFORMED THEM ABOUT PT K=4.9 TODAY, THEY SAID THEY WILL DC CA GLUCONATE IV, INSULIN IV AND D50 AND ALSO NO NEED TO TO DO BMP ANYMORE, THEY WILL CANCEL BMP FROM 1000 AM THEY ORDERED. INFORMED LAB AND PHARMACY. PT IS STABLE. DENIES ANY PAIN.
[2020-02-24 09:53] LABS: BASOPHIL % 0.2 % (0-2); PLATELET COUNT 272 x10^3mcL (130-400); RED CELL DISTRIBUTION WIDTH 14.4 % (11.5-14.5)
--- NOTE | 2020-02-24 10:56 | NUR ---
PATIENT REFUSED ECHO.
[2020-02-24] MEDS ORDERED: BG FS (13:23)
[2020-02-24] MEDS ORDERED: LANTI SQ (13:25)
[2020-02-24] MEDS ORDERED: HUMULIN R100 U/1 M1 SC (13:26)
--- NOTE | 2020-02-24 14:00 | NUR ---
PT RESTING IN BED COMFORTABLY. DENIES ANY PAIN. STABLE. PT DOESNOT LIKE ANYBODY DOING ANYTHING WITH HIM, HE SAY LEAVE ME ALONE AND GET ANGRY.
[2020-02-24 14:19] VITALS: BP 154/81
[2020-02-24 18:27] VITALS: BP 150/79
--- NOTE | 2020-02-24 19:05 | NUR ---
PT RESTING IN BED COMFORTABLY, DENIES ANY PAIN. STABLE. GAVE REPORT TO MANAGER FIBER NURSE.
--- NOTE | 2020-02-24 19:54 | NUR ---
RECEIVED PATIENT IN BED NAKED APPEAR TO BE CONFUSED WITH NO SIGN OF RESPIRATORY DISTRESS. PATIENT MEAN AND UNCOOPERATIVE WITH CARE AND DOES NOT WANT TO FOLLOW INSTRUCTION. IV TO LFA INTACT AND INFUSING WELL. WILL CONTINUE TO MONITOR, BED ALARM ON AND BED TO LOWEST POSOTION.
--- NOTE | 2020-02-24 21:45 | NUR ---
BP- 171/91, DR MCKEON MADE AWARE PATIENT REFUSED TO RECHECK BP.
[2020-02-24 22:25] VITALS: BP 171/91
--- NOTE | 2020-02-24 23:15 | NUR ---
PATIENT CONFUSED NAKED CUT IV TUBINGS AND YELLING TO NURSE. REORIENT AND STILL VERY UPSET. DR NUNO MADE AWARE.
--- NOTE | 2020-02-24 23:53 | NUR ---
QUIET AT THIS TIME RESTING IN A POSITION OF COMFORT, REFUSED IV FLUIDS, AWARE.
--- NOTE | 2020-02-25 05:12 | NUR ---
CHECKED AT INTERVALS FOR NEEDS AND SAFETY. NO SIGN OF DISTRESS NOTED.
[2020-02-25 06:27] VITALS: BP 142/71
--- NOTE | 2020-02-25 07:05 | NUR ---
RECEIVED BEDSIDE REPORT FROM NIGHT RN. PT SLEEPING IN BED COMFORTABLY WITH EYES SHUT. EASILY AROUSABLE. NO ACUTE DISTRESS. RR EVEN AND UNLABORED ON RA. HOB ELEVATED. CANE AT BEDSIDE. PT ON TELE#37. CALL LIGHT WITHIN REACH. BED LOCKED IN LOWEST POSITION. WILL CONTINUE TO MONITOR.
[2020-02-25 07:23] LABS: MAGNESIUM 1.2 mg/dL (1.8-2.4); PHOSPHOROUS 2.9 mg/dL (2.5-4.9)
[2020-02-25 07:43] LABS: BASOPHIL % 0.4 % (0-2); PLATELET COUNT 238 x10^3mcL (130-400); RED CELL DISTRIBUTION WIDTH 14.2 % (11.5-14.5)
[2020-02-25 08:23] VITALS: BP 121/66
[2020-02-25 11:54] VITALS: BP 150/64
--- NOTE | 2020-02-25 12:24 | NUR ---
XRAY AT [facility] FOR RANDALL FEET. L FOOT 2ND TOE SWOLLEN AND BLACK. BOTTOM OF RIGHT FOOT HAS OPEN SORE .
--- NOTE | 2020-02-25 12:58 | NUR ---
PT REFUSED COVID TEST FOR PLACEMENT
[2020-02-25 14:34] VITALS: BP 120/65
--- NOTE | 2020-02-25 18:01 | NUR ---
PT CONTINUE TO REFUSE NASAL COVID TEST. MADE AWARE. MD RECOMMENDED ORAL COVID TEST. LAB DOESNT HAVE TEST.
--- NOTE | 2020-02-25 19:15 | NUR ---
PT ASLEEP IN BED COMFORTABLY. CARE ENDORSED TO NIGHT RN.
--- NOTE | 2020-02-25 19:30 | NUR ---
RECEIVED PT FROM AM NURSE. PT AAOX4, ABLE TO FOLLOW COMMANDS AND MAKE NEEDS KNONW. PT DENIES US/DIZZINESS, PT REFUSES TO HAVE TELE MONITOR ON. BREATHING EVEN AND UNLABORED ON RA. NO SOB NOTED. ABD SOFT AND NONDISTENDED, ACTIVE BS X4 QUAD, DENIES N/V/D. VOIDS FREELY, GENERALIZED WEAKNESS. USES WALKER AT BASELINE. PT HAS WOUNDS AND ABRASIONS TO BLE, PT REFUSES ASSESSMENT, PICTURES OR WOUND CARE. IV TO LFA PATENT AND INTACT. SITE WNL. NO ACUTE DISTRESS NOTED. BED AT LOWEST SETTING. SIDE RAILS X2 UP. CALL LIGHT WHING REACH. WILL CONT TO MONITOR.
[2020-02-25 20:36] VITALS: BP 128/71
--- NOTE | 2020-02-26 00:15 | NUR ---
PT CONFUSED, TRYING TO GET OUT OF BED, REORIENTED, STATED UNDERTANDING. PT BACK IN BED, NO ACUTE DISTRESS NOTED. SAFETY PRECAUTIONS IN PLACE. CALL LIGHT WITHING REACH. WILL CONT TO MONITOR.
--- NOTE | 2020-02-26 05:28 | NUR ---
PT IS CONFUSED, CONT TRYING TO GET OUT OF BED, PT BEING VERBALLY ABUSIVE TO STAFF. PT REORIENTED WITH NO SIGNS OF UNDERSTANDING. PT HAS BEEN MOVED TO ROOM 243B CLOSER TO NURSE STATION. ALL SAFETY PRECAUTIONS IN PLACE. ALL NEEDS ASSESSED AND ATTENDED TO. NO ACUTE DISTRESS NOTED. WILL CONT TO MONITOR.
[2020-02-26 05:43] VITALS: BP 139/78
--- NOTE | 2020-02-26 06:08 | NUR ---
PT RESFUSES TO HAVE COVID TEST DONE AND HAVE BLOOD DRAWN. DR PELAEZ AWARE. NO NEW ORDERS RECEIVED.
--- NOTE | 2020-02-26 07:05 | NUR ---
RECEIVED BEDSIDE REPORT FROM NIGHT RN. PT IN BED ASLEEP COMFORTABLY WITH EYES SHUT. PT EASILY AROUSABLE. RR EVEN AND UNLABORED ON RA. PT REFUSES IV FLUID. PT REFUSES TELE MONITOR. IV IN LFA CDI WITH NO REDNESS OR SWELLING. HOB ELEVATED. BED RAILS UPX2. CALL LIGHT WITHIN REACH. BSC AND CANE AT BEDSIDE. WILL CONTINUE TO MONITOR.
[2020-02-26 09:30] VITALS: BP 139/62
--- NOTE | 2020-02-26 11:08 | NUR ---
PT IN BED ASLEEP. PT RECEIVED ABX THIS AM. WOUND CULURE OF R FOOT DONE. PT TOLERATED WELL. ALL NEEDS MEET AT THIS TIME . WILL CONTINUE TO MONITOR.
--- NOTE | 2020-02-26 12:40 | NUR ---
ORAL COVID TEST PREFORMED FOR PLACEMENT. PT TOLERATED WELL.
[2020-02-26 13:22] VITALS: BP 129/74
--- NOTE | 2020-02-26 14:39 | NUR ---
CT AT BEDSIDE FOR US ARTERIAL BLE. PT COOPERATING AFTER REDIRECTING THE PT A FEW TIMES.
[2020-02-26 16:08] VITALS: BP 136/62
--- NOTE | 2020-02-26 19:08 | NUR ---
PT IN BED ASLEEP WITH EYES CLOSED. EASILY AROUSABLE. RR EVEN AND UNLABORED ON RA. HOB ELEVATED. PT DENIED PAIN ALL DAY. CALL LIGHT WITHIN REACH. BED ALARM ON. BED LOCKED IN LOWEST POSITION. ENDORSED CARE TO NIGHT RN.
[2020-02-26 20:00] VITALS: BP 130/60
[2020-02-27] VITALS: BP 146/74
--- NOTE | 2020-02-27 04:07 | NUR ---
02/26/20 AT 1915. RECEIVED PATIENT RESTING IN BED COMFORTABLY AT THIS TIME. DENIES PAIN AND DISCOMFORT. CALL LIGHT WITHIN REACH.
--- NOTE | 2020-02-27 04:09 | NUR ---
02/27/20 AT 0000. INFORMED PATIENT WILL BE NPO NOW FOR POSSIBLE PROCEDURE THIS AM AND PT. VERBALIZED UNDERSTANDING. PATIENT AMBULATED IN THE ROOM WITH UNSTEADY GAIT. CONTINUE TO ENCOURAGE TO CALL FOR ASSISTANCE . CALL LIGHT WITHIN REACH.
[2020-02-27 04:35] VITALS: BP 149/78
[2020-02-27 07:38] LABS: BASOPHIL % 0.3 % (0-2); PLATELET COUNT 210 x10^3mcL (130-400); RED CELL DISTRIBUTION WIDTH 14.1 % (11.5-14.5)
[2020-02-27 07:52] LABS: CALCIUM 8.2 mg/dL (8.5-10.1); CARBON DIOXIDE 25.3 mmol/L (21-32); CHLORIDE SERUM 100 mmol/L (98-107); CREATININE SERUM 1.1 mg/dL (0.7-1.3); GFR1 > 60 mL/min; GLUCOSE SERUM 239 mg/dL (74-106); MAGNESIUM 1.2 mg/dL (1.8-2.4); PHOSPHOROUS 2.6 mg/dL (2.5-4.9); POTASSIUM SERUM 4.4 mmol/L (3.5-5.1); SODIUM SERUM 133 mmol/L (136-145)
[2020-02-27 09:21] VITALS: BP 132/69
--- NOTE | 2020-02-27 09:40 | NUR ---
GOT CLAY STAIN MIXER REPORT PT'S TEMP 102.6, PROVIED COOLING MEASURE. THERE IS NO TYLENOL ORDERED. PAGED DR. MCLAUGHLIN FOR TYLENOL ORDER. WAITING FOR CALL BACK.
--- NOTE | 2020-02-27 09:54 | NUR ---
PT'S REPORT GIVEN TO OR NURSE. MADE HER AWARE PT STATED NO DOCTORS TALKED TO HIM YET. SURGICAL CONSENT HAVEN'T SIGNED. PT IS NPO.
--- NOTE | 2020-02-27 11:16 | NUR ---
RECHECK PT'S TEMP 98.5. PT IS TAKEN FOR SURGERY. PRE-OP PROVIDED.
--- NOTE | 2020-02-27 12:08 | NUR ---
PHYSICAL THERAPY NOTES Pt TAKEN DOWN TO OR FOR PROCEDURE (PROPOSED 2nd TOE AMPUTATION, LEFT FOOT). CONTINUED REHAB TRX POSTPONED AT THIS TIME FOR POSTOP VISIT.
--- NOTE | 2020-02-27 12:18 | NUR ---
PT IS BACK FROM OR. NO SURGERY DONE BECAUSE OF PT'S LOW H/H. EDUCATED PT ABOUT BLOOD TRANSFUSION, BUT PT REFUSED EVERYTHING INCLUDING LAB DRAWN FOR TYPE SCREEN.
--- NOTE | 2020-02-27 12:36 | NUR ---
PT'S GLUCOSE CHECK 217. BUT PT REFUSED INSULIN.
[2020-02-27 13:23] VITALS: BP 126/63
[2020-02-27 17:28] VITALS: BP 116/61
--- NOTE | 2020-02-27 17:33 | NUR ---
PAGE GATED DR. MCLAUGHLIN ABOUT PT'S MG 1.2, NEED TO REPLACE.
--- NOTE | 2020-02-27 17:52 | NUR ---
TRIED AGAIN TO EDUCATE PT WHY HE NNED BLOOD TRANSFUSION. HOWEVER, PT STILL REFUSED. WILL ENDOSE TO ONCOMING NURSE.
[2020-02-27 22:22] VITALS: BP 166/67
--- NOTE | 2020-02-28 04:38 | NUR ---
02/27/20 [id number]. RECEIVED PATIENT IN BED,AWAKE,ALERT ,AND ORIENTED.DENIES PAIN AND DISCOMFORT .AFEBRILE.
--- NOTE | 2020-02-28 04:41 | NUR ---
INFORMED PATIENT THE NEED TO SIGN THE CONSENT TO GIVE BLOOD TRANSFUSION ,EXPLAINED THE RISK AND IMPORTANCE .PATIENT REQUESTED FOR PRODUCTION FOREMAN AND PROVIDED BUT STILL REFUSED. WILL INFORMED .
[2020-02-28 04:44] VITALS: BP 136/64
[2020-02-28 06:55] LABS: CALCIUM 8.2 mg/dL (8.5-10.1); CARBON DIOXIDE 26.9 mmol/L (21-32); CHLORIDE SERUM 102 mmol/L (98-107); CREATININE SERUM 1.1 mg/dL (0.7-1.3); GFR1 > 60 mL/min; GLUCOSE SERUM 244 mg/dL (74-106); MAGNESIUM 1.3 mg/dL (1.8-2.4); PHOSPHOROUS 3.3 mg/dL (2.5-4.9); POTASSIUM SERUM 4.4 mmol/L (3.5-5.1); SODIUM SERUM 135 mmol/L (136-145)
[2020-02-28 07:31] LABS: BASOPHIL % 0.2 % (0-2); PLATELET COUNT 204 x10^3mcL (130-400); RED CELL DISTRIBUTION WIDTH 14.4 % (11.5-14.5)
--- NOTE | 2020-02-28 08:38 | NUR ---
AAO TIMES 4. MED SURG PATIENT. LUNGS CTA. NO SOB. O2 SAT ON RA 99%. BS'S ACTIVE TIMES 4. MCDOWELL. IV SITE RFA CDI. DRESSING TO BILATERAL FEET CDI. NO C/O PAIN. BECOMES ANGERED EASILY. VS'S STABLE.
[2020-02-28 08:41] VITALS: BP 132/94
[2020-02-28 11:10] VITALS: BP 121/79
--- NOTE | 2020-02-28 12:58 | NUR ---
HE HAS BEEN REFUSING DRESSING CHANGES TO HIS FEET SINCE LATER THIS AM.
--- NOTE | 2020-02-28 13:27 | NUR ---
DR SUTTON FROM PODIATRY TALKED WITH PATIENT ABOUT ALL HIS CONCERNS, AND HIS REFUSAL TO TAKE A UNIT OF PRBC, SOME OF HIS MEDICATIONS, AND ALSO SHE WANTS TO AMPUTATE HIS FOOT, BUT HE REFUSES TO TAKE A UNIT OF BLOOD. HE GETS VERY ANGRY AND BELIGERENT WITH MYSELF AND WITH OTHER STAFF, INCLUDING THIS DR, HE ALSO CURSES AT US. DR [facility] CONSULTED WITH HIM.
--- NOTE | 2020-02-28 14:01 | NUR ---
DR MCLAUGHLIN AWARE OF PATIENT'S MAG OF 1.3, HE SAID THAT THE PATIENT HAS REFUSED THE LAST MAG MEDICATIONS ORDERED FOR HIM.
--- NOTE | 2020-02-28 16:37 | NUR ---
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 toe amputation Labs: Na: 135L, Glu: 244H, BUN: 21H, CA: 8.2L, M.3L, A1C= 9.6 (02/22) Meds: apresoline, claritin, colace, D50%, Humalog, Humulin, lantus, seroquel, NaCl, Toradol, vancocin, Zofran, zosyn Diet: regular PO Intakes: 93% x 11 meals Ht: 5'4 Wt: 73.5 kg/161.7 lbs BMI: 27.8 IBW: 130 lbs %IBW: 124% UBW: Age: 64 Food Allergies: NKFA Skin: has abrasions to RANDALL knees, refused to be assessed per pt's nurse, per podiatry progress note ulceration on dorsal L 2nd PIP + 2nd met Jean: 19 Edema: refused to be assessed per pt's nurse GI: refused to be assessed per pt's nurse Wt: 150.2 lbs on bedscale, [address] Note (02/28/20): per H&P pt presented to ER with AMS, pt is wheelchair bound, pt was sitting in wheelchair waiting to cross the street and bystanders noticed him fall, which prompted them to call EMS, per H&P- metabolic encephalopathy 2/2 dehydratiion, hyperkalemia, vasomotor nephropathy, DMOOC with A1C 9.6, hypomagnesium, malnutrition. Pt pending transfer to [place] on condition with negative coronavirus test, pt refusing nasal swab Pt was asleep at time of visit. Took pt's wt on bedscale. pt's nurse did not know how the patient was eating and I was told to not speak to the pt because of his behavior. Nutrition flowsheets show pt is eating well. Problem with: N/V/D/C: no Problems with: Chewing/Swallowing: no Current appetite: good per nutrition flowsheets Recent wt changes: -11.5 lbs %wt change: -7.1% (possible scale error on pt's bedscale) Vitamin/Supplement: unknown Special Diet at Home: unknown Physical activity: wheelchair bound Education: no education was provided at this time Estimated Nutritional Needs Based on IBW of 130 lbs/59.1 kg Energy: 0367-7120 kcal/d (25-30 kcal/kg for maintenance) Protein: 59- 71 (1.0-1.2 g/kg) Fluid: 0249-7138 mL/day (30-35 mL/kg) Nutrition Diagnosis 1) Altered nutrition related lab values related to DM as evidenced by elevated glucose levels+ A1C = 9.6 Intervention/RDN Recommendation(s): 1) d/c regular diet, start CCHO diet 2) follow up pt's scaled wt Monitor/Evaluate Goal: have pt meet at least 75% of estimated nutrient needs Monitor: PO intake, Labs, Skin integrity, Weights. F/U LR on 03/06
--- NOTE | 2020-02-28 16:38 | NUR ---
REFUSED INSULIN SLIDING SCALE AND HUMALOG 50/50, HE WAS VERY BELIGERENT ABOUT IT, CUSSING AT ME.
--- NOTE | 2020-02-28 16:40 | NUR ---
Intervention/RDN Recommendation(s): 1) d/c regular diet, start CCHO diet 2) follow up pt's scaled wt
--- NOTE | 2020-02-28 18:42 | NUR ---
AAO TIMES 4. CONTINUES TO BE VERBALLY ABUSIVE TO STAFF. IV SITE CDI. NO C/O PAIN. AMBULATORY WITH CANE AND IV POLE. WATCHES TV.
--- NOTE | 2020-02-28 19:30 | NUR ---
PT RECIEVED FROM DAY NURSE. PT RESTING IN BED AT THIS TIME. DENIES PAIN OR DISCOMFORT. PT A/O X4, AGITATED AND UNCOOPERATIVE AT THIS TIME. AGREEABLE TO TAKE MEDS. PT TELE 37, ST. REFUSES TO KEEP TELE LEADS ON AT THIS TIME. MD AWARE. PALPABLE PULSES, TRACE EDEMA TO BLE. BREATHING E/U ON RA. DENIES SOB AT THIS TIME. ABD SOFT AND ROUND, DENIES PAIN TO PALPATION. PT WHEELCHAIR BOUND AT BASELINE. ABLE TO TURN AND REPOSITION SELF. IV TO RFA, CDI. BED AT LOWEST POSITION. CALL LIGHT WITHIN REACH. WILL CONTINUE TO MONITOR.
[2020-02-28 20:52] VITALS: BP 156/76
--- NOTE | 2020-02-29 00:27 | NUR ---
PT RESTING IN BED AT THIS TIME. DENIES PAIN OR DISCOMFORT AT THIS TIME. NO S/S OF ACUTE DISTRESS AT THIS TIME. BED AT LOWEST POSITION. CALL LIGHT WITHIN REACH. WILL CONTINUE TO MONITOR.
[2020-02-29 05:47] VITALS: BP 140/64
--- NOTE | 2020-02-29 06:10 | NUR ---
PT RESTING IN BED. DENIES PAIN OR DISCOMFORT. BREATHING E/U ON RA. PT REFUSING CARE THIS MORNING. REFUSED ACCUCHECKS AND ALL MORNING MEDS. MD AWARE. ALL NEEDS AND CONCERNS ADDRESSED THIS SHIFT. NO S/S OF ACUTE DISTRESS AT THIS TIME. WILL ENDORSE TO DAY NURSE.
--- NOTE | 2020-02-29 08:00 | NUR ---
RECEIVED PATIENT WITH DIMINISHED BREATH SOUNDS AND HAS BEEN REFUSING ALOT OF THE PROCEDURES AND CARE. PER OFF GOING STAFF PATIENT WAS TO BE TRANSFERED TO [facility] FOR CARE. NO ORDERS HAVE BEEN RECIEVED AND PATEINT HAS BEEN WANTING TO HAVE EVERYTHING DONE AT [facility] THEY KNOW ALL ABOUT HIM THERE. PATIENT HAS BEEN TOLERATING DIET AND FLUIDS WELL. HIS LAST BLOOD [id number] AND RECEIVE D12 UNITS OF REGULAR FOR THIS LEVEL. SVITLANA CALZADA NOTED LOW H AND H BUT HAS BEEN REFUSING BLOOD DRAWS AND ANY KIND OF TRANSFUSION HE FEELS HE CAN GET AIDS. PATEINAdriana GARAY NOTED LAST WBC AT 10.4. HE HAS BEEN ON VANCO AND ZOSYN AND WITHOUT HAVING TGEH TROUGH THE VANCO WILL BE HARD ON HIS KIDNEYS, OATEUBT SA EXPLAINED THIS OVER AND OVER AGAIN BUT HE DOES NOT WANT THE NEEDLE STICK OF ANY KIND OF INJECTION BUT OK WITH GIVENING IVPB. PATIENT USES A WHEELCHAIR AT BASELINE. WILL CONTINUE TO ENCOURAGE COMPLIANCE WITH PLAN OF CARE AND ANSWER AND REORIENT TO PLAN OF CARE. VITALS AT THIS TIME AT 98.4, 78, 19, 64, 89, 95%. NO NEW LABS AT THIS TIME DUE TO REFUSAL OF LABS.
--- NOTE | 2020-02-29 10:00 | NUR ---
PATIENT IS REFUSING BLOOD DRAW AT THIS TIME. HE HAS FEAR OF NAV[place]O AIDS. HE HAS BEEN NON COMPLIANT WITH CARE AND STATES HE WANTS TO DO TO [facility] THEY KNOW HIM VERY WELL SINCE THE 80'S. PATIENT HAS NO ORDER FOR TRANSFER AT THIS TIME. SEEN BY THE GROUNDSMAN AND DRESSING WAS CHANGED INICATED. DENIES PAIN AT THIS TIME BUT IHAS STRONG VIEWS OF WHAT NURSING IS AND HOW HE HAS CONTROL OF HIS CARE. PATIENT HAS BEEN ADIVSED OF NEED FOR SURGERY, ANTIBIOTICS AND WOUND CARE. PATIENT HAS CLEAR BUT DIMINISHED BREATH SOUNDS AND BOWEL SOUNDS ACTIVE. PATIENT HAS BEEN REFUSING MANY THINGS ADN THE GROUNDSMAN WANTS HIM TO HAVE THE BLOOD TEST. DRESSING THE FEET INTACT AT THIS TIME AND DENIES PAIN AT THIS TIME.
[2020-02-29 12:57] VITALS: BP 155/79
--- NOTE | 2020-02-29 13:08 | NUR ---
PAGED AND WAITING CALL BACK. CONFIRMED WITH THE PHARMACY THAT WITHOUT A TROUGH DEANDRA CAN NOT RECEIVE THE VANCO. HE IS NOT ABLE TO RECEIVE ORALLY EITHER PER PHARMACY ONLY GIVEN FOR GASTRIC DISORDER OF C DIFF. PATIENT HAS BEEN VERY FIRM DESPITE SEVERAL ATTEMPTS TO GET HIM TO COMPLY ON NOT GETTING A BLOOD DRAW.
[2020-02-29 16:44] VITALS: BP 171/85
--- NOTE | 2020-02-29 19:05 | NUR ---
FINALLY WAS ABLE TO CONTACT THE RESIDENTTO INFORM THAT THE PATIENT ABS MRSA OF THE WOUND AND HAS BEEN REFUSING BLOOD DRAW NEEDED FOR VANCOMYCIN. SO PER PHARMACY THE VANCO CAN NOT BE GIVEN WTIHOUT A TROUGH. IS NOW AWARE.
--- NOTE | 2020-02-29 19:59 | NUR ---
PT. AWAKE, ALERT, ORIENTED X4. DENIES HEADACHE OR DIZZINESS. SPEECH CLEAR, CONVERSATION APPROPRIATE. BREATH SOUNDS CLEAR THROUGHOUT LUNG LONG, RESP. EVEN, UNLABORED. NO SOB NOTED. PT. ON RA. ABD. SOFT AND ROUND, BOWEL SOUNDS ACTIVE. TRACE EDEMA TO BLE.PEDAL PULSES MODERATE BLE. IV NS AT 100CC/HR. SITE INTACT. RANDALL FEET WITH DRSG, CDI. DRSG DONE BY PODIATRY PER PATIENT. TELE ORDERED, OFFERED AT THIS TIME. PT. REFUSED TO WEAR TELE, STATED THAT HE DOES NOT NEED IT AND THAT HE IS FINE. WILL NOTIFY MD. CALL LIGHT WITHIN REACH.
--- NOTE | 2020-02-29 20:59 | NUR ---
PT. REFUSING TO GIVE HIS ARM FOR ARMBAND TO BE SCANNED TO GIEN NIGHT MEDICATIONS THAT ARE SCHEDULED. PT. REFUSED MEDICATION, SCREAMING AND SHOUTING THAT" CAN'T YOU SEE THAT I'M SLEEPING" ALSO STATING "THAT'S YOUR PROBELM IF I DON'T GET MY MEDICATION". ANOTHER LICENSED NURSE, RN, BROUGHT TO ROOM TO WITNESS. CHARGE NURSE ALSO MADE AWARE.
[2020-02-29 21:38] VITALS: BP 134/70
--- NOTE | 2020-02-29 23:12 | NUR ---
FOLLOWED THROUGH WITH PATIENT ORDERS FOR TELE. TELE ORDER WAS DISCONTINUED SINCE DAY SHIFT.
--- NOTE | 2020-03-01 02:31 | NUR ---
PT. APPEARS COMFORTABLE, EYES CLOSED AND APPEARS TO BE SLEEPING. NO C/O PAIN THUS FAR. IVF INFUSING WEL, SITE REMAINS INTACT. CALL LIGHT WITHIN REACH.
[2020-03-01 05:38] VITALS: BP 161/107
--- NOTE | 2020-03-01 06:16 | NUR ---
DR. Myra SUTTON,PODIATRY IN AT BEDSIDE. DRSG CHANGE BEING DONE. PICTURES OF BLE WAS OBTAINED. PT. BP ELEVATED. ROUTINE DOSE OF HYDRALYZINE WAS ALSO GIVEN. IVF INFUSING WELL, SITE INTACT. CALL LIGHT WITHIN REACH. PT. REFUSED INSULIN ALSO THIS MORNING. WILL ENDORSE PATIENT CARE TO INCOMING NURSE.
[2020-03-01 07:58] LABS: CALCIUM 8.4 mg/dL (8.5-10.1); CARBON DIOXIDE 27.6 mmol/L (21-32); CHLORIDE SERUM 101 mmol/L (98-107); CREATININE SERUM 0.9 mg/dL (0.7-1.3); GFR1 > 60 mL/min; GLUCOSE SERUM 165 mg/dL (74-106); MAGNESIUM 1.2 mg/dL (1.8-2.4); POTASSIUM SERUM 3.9 mmol/L (3.5-5.1); SODIUM SERUM 136 mmol/L (136-145)
[2020-03-01 08:43] LABS: BASOPHIL % 0.3 % (0-2); PLATELET COUNT 252 x10^3mcL (130-400); RED CELL DISTRIBUTION WIDTH 14.1 % (11.5-14.5)
[2020-03-01 08:54] VITALS: BP 161/81
--- NOTE | 2020-03-01 10:20 | NUR ---
PATIENT IS A 64YEAR OLD MALE THAT WAS ADMITTED TO [facility] FOR ALTERED LOC FOUND ON THE STREET. HE ADMITTED WITH SYNCOPE, HYPERKALEMIA, CARLOS ALBERTO, ALTERED LOC. HE HAS DM WITH A R TOE AMPUTATION. HE IS NON COMPLIANT WITH CARE REFUSES MEDICATION AND CONSENTS PER NOC NURSE REPORT. PATIENT WAS ABLE TO TAKE AM MEDICATIONS AND ABX UPDATED ROUNDING MDS DURING HUDDLE. CALLED FROM FABIEN RAMEY RN TO TAKE HIM FOR L TOE AMPUTATION OF THE 2ND TOE AND POSSIBLE TMA OF THE RIGHT FOOT. NO CONSENT WAS OBTAINED IN CHART NEW CHECKLIST WAS DONE BUT PATIENT WAS NOT PLACED NPO. I INFORMED SURGERY DEPARTMENT TO SEE IF PROCDURE CAN BE CHANGED. CONTINUING ABX AT THIS TIME [place].
--- NOTE | 2020-03-01 16:44 | NUR ---
Initial Nutrition Assessment: 243B MATT VILLASEÑOR 64M MR Dx: ALOC, Hyperkalemia, syncope PMHx: HTN, DM PSHx: 2 inguinal hernia, arthroscopic meniscues, right 5th amputation Labs: (03/01) H/H 8.3/25L, BG 165H, POC 155H, Mg 1.2L, (02/22) A1C 9.6H, AST 11L, ammonia < 10L, Albumin 2.8L, HDL 34L Meds: Apresoline, Colace, Humulog Lantus, Seroquel, Sodium chloride, Vancocin, Vancomycin, Zosyn PRN meds: D50%, Humulin, Toradol, Zofran Diet: [facility] PO intake since admission: 50-100% x 14 meals with average PO intake of 92% Ht: 162.56cm/64in Wt: 73.482kg/162lbs BMI: 27.8 Bed scale: 67.5kg/149.2lbs IBW: 59.09kg/130lbs %IBW: 124.35% UBW: unknown Age: 64 Food Allergies: unknown Edema: Trace edema +1 noted to BLE Last BM: 02/27 Skin: MRSA/Ecoli in foot wound (pt refused to have wound assessment per problem skin on 02/22) Jean: 19 Per H and P (02/22), A 64 yo male with PMhx of HTN and diabetes presents to the hospital by EMS with altered mental status after he was found on the street. Patient was uncooperative during the encounter, so the majority of the history was obtained via EMS and the ED physician's note. According to ED records, pt was noted to be sitting on a wheelchair waiting to cross the street when by standards noticed him fall, which prompted them to call EMS. On the floor, pt states that he does not remember falling and was just "hanging around the street" and "traveling by foot" when the ambulance came by and picked him up. Pt has no complaints and is uncooperative with questions, stating that he has been asked multiple times in the ED and refuses to provide history or cooperate on the ROS. Pt does not understand why he was admitted and states that he lives with friends but is unable to provide more information about his residence. Pt denies trauma, chest pain, nausea, vomiting, and abdominal pain. Pt was admitted with dx: Metabolic encephalopathy, Hyperkalemia, vasomotor nephropathy, DMOOC, hypomagnesium, Malnutrition, DVT RD Note (03/01) Pt was seen lying in bed, pt appeared to be confused and did not want to participate in assessment d/t being sleepy. Per pt's RN, pt is current NPO d/t scheduled procedure (ERCP), and pt was had fair appetite this morning. Additionally, no GI distress or chewing/swallowing difficulty was observed per RN. Problem with: N/V/D/C: none per RN Problems with: Chewing: Swallowing: None per RN Current appetite: Per RN, pt had fair appetite for breakfast; 50% Recent wt change: unknown %wt change: unknown Height: unknown Vitamin/Supplement use: unknown Special diet at home: unknown Physical activity: unknown Nutrition education given (specify specific nutrition education and handout given): Pt was confused and not appropriate Food-drug interactions? Education given? n/a Estimated Nutritional Needs Based on ideal body weight (59kg) Energy: 1058-2554 kcal/day (30-35 kcal/kg for optimal wound healing) Protein: 73-88 g/day (1.25-1.5g/kg for optimal wound healing) Fluid: 2651-1980 mL/day (1 mL/kcal) Nutrition Diagnosis: 1. Impaired nutrition utilization r/t endocrine dysfunction a/e/b pt elevated BG 165H and POC BG 155H on 03/01, A1C 9.6 on 02/22. 2. Increased energy and protein needs r/t skin integrity a/e/b pt infected diabetic foot ulcer. Intervention 1. Recommend resume CCHO diet when appropriate 2. Recommend Glucerna BID once pt can be on oral diet Monitor/Evaluate Goal: PO intake at least 75% of estimated needs Monitor: PO intake, Labs, GI function, skin integrity F/U in 3-5 days as moderate risk 03/04-
--- NOTE | 2020-03-01 16:48 | NUR ---
1. Recommend resume CCHO diet when appropriate 2. Recommend Glucerna BID once pt can be on oral diet
[2020-03-01 21:21] VITALS: BP 145/75
[2020-03-02 06:26] VITALS: BP 155/77
[2020-03-02 06:35] LABS: BASOPHIL % 0.2 % (0-2); PLATELET COUNT 254 x10^3mcL (130-400)
[2020-03-02 06:52] LABS: CALCIUM 8.8 mg/dL (8.5-10.1); CARBON DIOXIDE 32.9 mmol/L (21-32); CHLORIDE SERUM 101 mmol/L (98-107); GFR1 > 60 mL/min; GLUCOSE SERUM 242 mg/dL (74-106); MAGNESIUM 2.1 mg/dL (1.8-2.4); PHOSPHOROUS 3.8 mg/dL (2.5-4.9); POTASSIUM SERUM 3.7 mmol/L (3.5-5.1); SODIUM SERUM 137 mmol/L (136-145)
[2020-03-02 08:55] VITALS: BP 179/97
--- NOTE | 2020-03-02 11:44 | NUR ---
PATIENT IS A 64YEAR OLD MALE THAT WAS ADMITTED FOR SYNCOPE AND ALTERED LOC. PATIENT HAS HISTORY OF DM AND A RIGHT TOE AMPUTATION. PATIENT IS BEING FOLLOWED BY PODIATRY. PREVIOUSLY REFUSED BLOOD TRANFUSION, SURGEON AGREED TO DO PROCEDURE TODAY TO REMOVE THE SECOND DIGIT OF LEFT FOOT, AND A TRANSMETARSAL RIGHT FOOT AMPUTATION. PREPROCEDURE CHECKLIST WAS COMPLETED REPORT WAS GIVEN TO SURGERY NURSE. NEW IV WAS PLACED ON THE RIGHT FORARM 20G RUNNING VANCO AND ZOSYN THIS AM. AGREED TO 1130 ACCUCHEC, REFUSED PO MEDS. 1200 PATIENT WAS TRANFFERED FOR SURGERY.
--- NOTE | 2020-03-02 12:12 | NUR ---
PHYSICAL THERAPY NOTE Pt TAKEN DOWN TO OR FOR PROPOSED AMPUTATION OF 2nd DIGIT OF LEFT FOOT. PENDING PHYSICAL THERAPY FOLLOW UP POST OP.
[2020-03-02 16:06] VITALS: BP 94/46
--- NOTE | 2020-03-02 20:32 | NUR ---
RECEIVED REPORT FORM OUTGOING NURSE.PATIENT IN BED ,AWAKE,ALERT,AND ORIENTED X 4.ROOM AIR, LUNGS CLEAR ON AUSCULTATION.DENIES PAIN AND DISCOMFORT AT THIS TIME.
[2020-03-02 21:00] VITALS: BP 143/75
[2020-03-03 05:40] VITALS: BP 140/70
[2020-03-03 07:21] LABS: BASOPHIL % 0.3 % (0-2); PLATELET COUNT 241 x10^3mcL (130-400); RED CELL DISTRIBUTION WIDTH 14.1 % (11.5-14.5)
--- NOTE | 2020-03-03 07:26 | NUR ---
REPORT TAKEN FROM FOOD SERVICE HOTEL RUNNER NURSE AT THE BEDSIDE, PATIENT IS ALERT AND ORIENTED, REPORTS NO DISTRESS AT THIS TIME, WILL CONTINUE TO MONITOR.
[2020-03-03 07:47] LABS: CALCIUM 7.9 mg/dL (8.5-10.1); CARBON DIOXIDE 25.6 mmol/L (21-32); CHLORIDE SERUM 103 mmol/L (98-107); GFR1 > 60 mL/min; GLUCOSE SERUM 179 mg/dL (74-106); MAGNESIUM 1.6 mg/dL (1.8-2.4); PHOSPHOROUS 2.7 mg/dL (2.5-4.9); POTASSIUM SERUM 3.9 mmol/L (3.5-5.1); SODIUM SERUM 137 mmol/L (136-145)
[2020-03-03 09:27] LABS: rbc morphology (normal/abnorm) ABNORMAL (NORMAL)
[2020-03-03 09:30] LABS: schistocyte (helmet cell) 1+
[2020-03-03 09:51] VITALS: BP 113/60
--- NOTE | 2020-03-03 10:24 | NUR ---
NO IV ACCESS AT THIS TIME FOR IV MEDICATION, FAILED TWICE TO LEFT HAND TO PLACE IV WILL CONTINUE TO TRY AND INSERT IV.
--- NOTE | 2020-03-03 11:17 | NUR ---
FAILED TO PLACE IV TO RIGHT FA, ATTEMPT NUMBER 3. WILL REQUEST ASSISTANCE FROM ANOTHER NURSE.
[2020-03-03 13:25] VITALS: BP 129/69
--- NOTE | 2020-03-03 16:08 | NUR ---
SPOKE TO DR. MCLAUGHLIN WHO REPORTS PATIENT IS REFUSING BLOOD TRANSFUSION.
[2020-03-03 16:12] VITALS: BP 162/75
--- NOTE | 2020-03-03 19:11 | NUR ---
REPORT GIVEN TO HEARING AIDE TECHNICIAN NURSE CARE ENDORSED
[2020-03-03 20:00] VITALS: BP 145/70
[2020-03-04 05:34] VITALS: BP 151/72
--- NOTE | 2020-03-04 08:00 | NUR ---
Received patient from OLGA Butler news agent. Patient lying in bed on room air with no sign of respiratory distress; IV running left forearm; bed in low position with brakes locked and alarm on; no complaint of pain; pt in stable condtion.
[2020-03-04 08:04] LABS: BASOPHIL % 0.4 % (0-2); PLATELET COUNT 297 x10^3mcL (130-400); RED CELL DISTRIBUTION WIDTH 14.4 % (11.5-14.5)
[2020-03-04 09:26] VITALS: BP 197/97
[2020-03-04 09:29] LABS: CALCIUM 9.5 mg/dL (8.5-10.1); CARBON DIOXIDE 32.2 mmol/L (21-32); CHLORIDE SERUM 104 mmol/L (98-107); CREATININE SERUM 0.9 mg/dL (0.7-1.3); GFR1 > 60 mL/min; GLUCOSE SERUM 71 mg/dL (74-106); POTASSIUM SERUM 3.3 mmol/L (3.5-5.1); SODIUM SERUM 142 mmol/L (136-145)
[2020-03-04 09:37] LABS: MAGNESIUM 1.7 mg/dL (1.8-2.4)
[2020-03-04 13:08] VITALS: BP 158/87
[2020-03-04 17:35] VITALS: BP 182/95
--- NOTE | 2020-03-04 19:39 | NUR ---
Gave detailed bedside report to OLGA Weaver fast food shift lead. Patient lying in bed, in stable condition; IV running right hand with no infltration; on room air with no SOB; bed in lowest position, with brakes locked, call light within reach
--- NOTE | 2020-03-04 20:45 | NUR ---
Pt. received from drapery rod assembler nurse, no c/o pain or s/o discomfort at this time. Pt. breathing e/u on RA, no acute distress at this time, will cont. to monitor pt. a
[2020-03-04 21:16] VITALS: BP 147/64
[2020-03-05 05:47] VITALS: BP 167/83
--- NOTE | 2020-03-05 05:57 | NUR ---
Pt. dressing changed and pictures taken by podiatry. Pt. tolerated well, no acute changes, pt. needs met and anticipated, will cont. to monitor. Otherwise, no c/o pain, pt. noted to be wet of sweat, no c/o pain or discomfort. Pt. remained afebrile, pt. noted to have elevated BP this AM, but will medicate w/ hydralizine as ordered. Otherwise, pt. stable, no acute changes, will cont. to monitor and endorse to next shift RN.
--- NOTE | 2020-03-05 07:00 | NUR ---
Received bedside report from night time babysitter nurse; patient alert, awake; on room air, no signs of respiratory distress; IV infusing NS @100cc/hr with no sign of infiltration; dressing on bilateral foot; patient no complaint of pain; bed in lowest position with brakes locked, call light within reach; room free of clutter.
--- NOTE | 2020-03-05 07:05 | NUR ---
RECEIVED PT FROM HYDRO PLANT TECHNICIAN NURSE. PT IN BED SLEEPING, AROUSABLE, RESP E/U ON RA. NO ACUTE DISTRESS NOTED. IV TO R HAND W/ NO SIGNS OF INFILTRATION, IVF INFUSING WELL. DRESSING TO BLE CDI. BED IN LOWEST POSITION AND CALL LIGHT WITHIN REACH. WILL CONTINUE TO MONITOR.
[2020-03-05 07:09] LABS: BASOPHIL % 0.3 % (0-2)
[2020-03-05 07:18] LABS: CALCIUM 9.2 mg/dL (8.5-10.1); CARBON DIOXIDE 30.7 mmol/L (21-32); CHLORIDE SERUM 103 mmol/L (98-107); CREATININE SERUM 0.9 mg/dL (0.7-1.3); GFR1 > 60 mL/min; GLUCOSE SERUM 94 mg/dL (74-106); MAGNESIUM 1.6 mg/dL (1.8-2.4); POTASSIUM SERUM 3.6 mmol/L (3.5-5.1); SODIUM SERUM 142 mmol/L (136-145)
[2020-03-05 07:34] LABS: PLATELET COUNT 298 x10^3mcL (130-400); RED CELL DISTRIBUTION WIDTH 14.4 % (11.5-14.5)
[2020-03-05 07:43] VITALS: BP 137/79
[2020-03-05 09:29] LABS: rbc morphology (normal/abnorm) NORMAL (NORMAL)
[2020-03-05 12:03] VITALS: BP 154/80
[2020-03-05 16:49] VITALS: BP 150/80
--- NOTE | 2020-03-05 19:05 | NUR ---
PATIENT RECEIVED IN BED ALERT TO SELF WITH CONFUSION. ARGUMENTATIVE WITH STAFF AND RN WITH PLAN OF CARE. PATIENT EDUCATED TO PLAN OF CARE. DISCUSSED MEDICATION REGIMEN, FALL AND SAFETY PRECAUTIONS, AND WOUND MANAGEMENT TO FEET. PATIENT INSTRUCTED TO REMAIN NO WEIGHT BEARING. EDUCATED PATIENT TO MEDICATION REGIMEN. MED ACTION PURPOSE AND SIDE EFFECTS. VSS.
--- NOTE | 2020-03-05 19:29 | NUR ---
Gave bedside report to Charlotte ESPINOZA distribution coordinator. Patient alert and oriented with intermittent confusion; IV LH patent; dressing intact; No sign of infiltration; patient lying in bed eyes open; on room air with no sign of respiratory distress; bed in lowest position with brakes locked, call light within reach; room free of clutter.
[2020-03-05 20:17] VITALS: BP 148/67
--- NOTE | 2020-03-06 | NUR ---
PATIENT SLEEPING DURING ROUNDING, EASILY AROUSED. FALL AND SAFETY PRECAUTIONS ONGOING. VSS. NO ACUTE DISTRESS NOTED. MEDICATIONS SCHEDULED.
--- NOTE | 2020-03-06 06:24 | NUR ---
PATIENT SLEEPING IN BED, EASILY AROUSED. FALL AND SAFETY PRECAUTIONS MAINTAINED. RESPIRATIONS EVEN AND NONLABORED. ACYANOTIC. SKIN WARM AND DRY TO TOUCH. AFEBRILE. NO ACUTE DISTRESS NOTED. VSS.
[2020-03-06 06:26] VITALS: BP 144/70
[2020-03-06 07:41] LABS: CALCIUM 8.7 mg/dL (8.5-10.1); CARBON DIOXIDE 29.4 mmol/L (21-32); CHLORIDE SERUM 102 mmol/L (98-107); GFR1 > 60 mL/min; GLUCOSE SERUM 123 mg/dL (74-106); MAGNESIUM 2.2 mg/dL (1.8-2.4); PHOSPHOROUS 3.3 mg/dL (2.5-4.9); POTASSIUM SERUM 4.4 mmol/L (3.5-5.1); SODIUM SERUM 135 mmol/L (136-145)
--- NOTE | 2020-03-06 08:00 | NUR ---
PT IS AAOX2. ABLE TO FOLLOW SIMPLE COMMANDS AND MAKE NEEDS KNOWN. PT REFUSED NSG ASSESSMENT TO BE DONE. RESP EASY AT RM AIR. BARELY OPENED SHEETS TO SHOW RANDALL FT DSG. IVF NSS AT 100 ML/HR INFUSING. RH SITE PATENT AND WITHOUT INFILTRATION. CONTACT ISOLATION FOR MRSA WOUND AND ESBL PER ENDORSEMENT; PRECAUTION OBSERVED; FALL AND SAFETY PRECAUTION OBSERVED. WILL CONTINUE TO MONITOR STATUS.
[2020-03-06 08:16] VITALS: BP 168/82
[2020-03-06 08:39] LABS: BASOPHIL % 0 % (0-2); PLATELET COUNT 380 x10^3mcL (130-400); RED CELL DISTRIBUTION WIDTH 13.8 % (11.5-14.5)
--- NOTE | 2020-03-06 09:25 | NUR ---
LATE ENTRY. DR. NO IS HERE AND REPORTED THAT PT REFUSED FOOT DSG CHANGE
--- NOTE | 2020-03-06 09:40 | NUR ---
LATE ENTRY; PT REFUSED COLACE; HE STATES HE'S BEEN HAVING BM
[2020-03-06 12:03] VITALS: BP 150/76
--- NOTE | 2020-03-06 13:27 | NUR ---
Follow Up Nutrition Assessment: 243B MATT VILLASEÑOR 64M MR Dx: ALOC, Hyperkalemia, syncope PMHx: HTN, DM PSHx: 2 inguinal hernia, arthroscopic meniscues, right 5th amputation Labs: Na: 135L, Glu: 123H, BUN: 27H, WBC: 11.7H, H/H: 13.5/40L Meds: Apresoline, Colace, Humulag Mix, Humulin R, Maxipime, Lantus, Seroquel, Sodium chloride, Vancocin, Vancomycin, D50%, Humulin, Toradol, Zofran [facility] since admission: 90% Edema: Trace edema RANDALL FT Last BM: 03/03 Skin: MRSA/Ecoli in foot wound (pt refused to have wound assessment per problem skin on 02/22), R/L knee abrasion Jean: 18 RD note (03/04): Upon visit pt was eating at bedside, when pt was asked questions he reported he needed a greenhouse specialist and that he only speaks Swiss, Pt's nurse reported pt understands Bulgarian. Pt refused interview, but did tell the nurse he was eating everything. Pt refused to answer any other questions. Pt's primary nurse also reported he is eating well. Estimated Nutritional Needs Based on ideal body weight (59kg) Energy: 6850-5395 kcal/day (30-35 kcal/kg for optimal wound healing) Protein: 73-88 g/day (1.25-1.5g/kg for optimal wound healing) Fluid: 0056-7606 mL/day (1 mL/kcal) Nutrition Diagnosis: 1. Impaired nutrition utilization r/t endocrine dysfunction a/e/b pt elevated BG 165H and POC BG 155H on 03/01, A1C 9.6 on 02/22. 2. Increased energy and protein needs r/t skin integrity a/e/b pt infected diabetic foot ulcer. Intervention 1. Continue CCHO diet 2. Continue Glucerna BID Monitor/Evaluate Goal: PO intake at least 75% of estimated needs (met, ongoing) Monitor: PO intake, Labs, GI function, skin integrity F/U in 3-5 days as moderate risk 03/09-
--- NOTE | 2020-03-06 13:28 | NUR ---
Intervention 1. Continue CCHO diet 2. Continue Glucerna BID
[2020-03-06 13:29] LABS: rbc morphology (normal/abnorm) ABNORMAL (NORMAL)
--- NOTE | 2020-03-06 13:51 | NUR ---
DR. JUNIOR AWARE OF H/H
--- NOTE | 2020-03-06 14:02 | NUR ---
EXPLAINTED AND EDUCATED PT ON THE NEED FOR BLOOD TRANSFUSION BUT HE REFUSES. WILL INFORM DR. JUNIOR.
--- NOTE | 2020-03-06 14:26 | NUR ---
DR. JUNIOR AWARE THAT PT REFUSED BLOOD TRANSFUSION. NO FURTHER ORDER.
[2020-03-06 16:18] VITALS: BP 18145/7
[2020-03-06 16:54] LABS: CARBON DIOXIDE 30.9 mmol/L (21-32); CHLORIDE SERUM 102 mmol/L (98-107); CREATININE SERUM 0.9 mg/dL (0.7-1.3); GFR1 > 60 mL/min; GLUCOSE SERUM 271 mg/dL (74-106); POTASSIUM SERUM 3.7 mmol/L (3.5-5.1); SODIUM SERUM 139 mmol/L (136-145)
--- NOTE | 2020-03-06 18:42 | NUR ---
NO NEW ACUTE CAHNGE IN STATUS. DSG ON BLE IS CDI. NO SIGN OF BLEEDING. EMPHASIZED NWB BLE. PT IS ASYMTOMATIC WITH LOW H/H. WILL CONTINUE TO MONITOR STATUS.
--- NOTE | 2020-03-06 20:05 | NUR ---
PATIENT RECIEVED IN BED, ALERT AND ORIENTED X 3. CONFUSED TO SITUATION. REFUSING CARE OCCASIONALLY. ARGUMENTATIVE WITH STAFF DURING CARE. REALITY ORIENTATION NEEDED. VSS. DISCUSSED NURSING PLAN OF CARE. EDUCATED TO FALL AND SAFETY PRECAUTIONS AND NEED TO COMPLY. PATIENT REFUSED BATH AND CLOTHING CHANGE. DRESSING TO FEET DRY AND INTACT. IV TO RIGHT HAND INFUSING NS @ 100CC/HR. CONTINENT OF BLADDER, URINAL AT BED SIDE. COMPLAINT WITH MEDICATION REGIMEN. NO DIABETIC DISTRESS NOTED. ACYANOTIC, SKIN W/D. PATIENT REQUIRES ENCOURAGEMENT TO COMPLY WITH BATH AND PERSONAL CARE. RELUCTANT TO COMPLY WITH PLAN OF CARE. DISCUSSED FALL AND SAFETY PRECAUTION. FALL AND SAFETY MAINTAINED.
[2020-03-06 20:15] VITALS: BP 153/81
--- NOTE | 2020-03-07 | NUR ---
PATIENT SLEEPING DURING ROUNDING, EASILY AROUSED. ASSISTED WITH REPOSITIONING NEEDED. LUNGS CLEAR BILATERALLY WITH NO SOB. VSS. SKIN WARM AND DRY, ACYANOTIC. NO ACUTE DISTRESS NOTED.
--- NOTE | 2020-03-07 06:33 | NUR ---
PATIENT SLEEPING DURING ROUNDING, EASILY AROUSED. RESPIRATIONS EVEN AND NONLABORED. AFEBRILE. VSS.
[2020-03-07 08:14] LABS: CALCIUM 8.8 mg/dL (8.5-10.1); CHLORIDE SERUM 105 mmol/L (98-107); CREATININE SERUM 0.8 mg/dL (0.7-1.3); GFR1 > 60 mL/min; GLUCOSE SERUM 70 mg/dL (74-106); MAGNESIUM 1.6 mg/dL (1.8-2.4); PHOSPHOROUS 3.1 mg/dL (2.5-4.9); POTASSIUM SERUM 3.3 mmol/L (3.5-5.1); SODIUM SERUM 142 mmol/L (136-145)
[2020-03-07 08:34] LABS: BASOPHIL % 0.1 % (0-2); PLATELET COUNT 372 x10^3mcL (130-400)
[2020-03-07 09:01] VITALS: BP 160/82
[2020-03-07 09:54] LABS: RED CELL DISTRIBUTION WIDTH 14.9 % (11.5-14.5)
[2020-03-07 12:56] VITALS: BP 153/83
[2020-03-07 13:06] LABS: IRON 31 ug/dL (65-170); TOTAL IRON BINDING CAPACITY 183 ug/dL (250-450)
--- NOTE | 2020-03-07 15:55 | NUR ---
PATIENT A&OX3 DEMEANOR IS VERY AGGRESIVE.BS @1200 WAS 183. COVERED BS WITH 7U 50/50 AND 3U REG INSULIN.PATIENT REFUSES MAJOIRTY OF MEDICATIONS. THIS RAG CUTTING MACHINE FEEDER EDUCATED HIM ON THE IMPORTANCE OF TAKING THE MEDICATIONS HE STATED HE UNDERSTOOD JUST HE DOES NOT WANT TO TAKE HI. AT 1400 THIS RAG CUTTING MACHINE FEEDER HUNG A NEW BAFG OF NS 0.9% RUNNING TA 100ML/HR. MAJORITY OF THE DAY PARTIENT LAYS IN BED ASLEEP AND DOES NOT WAN TO BE BOTHERED.HE IS CURENTLY IN BED RESTING WITH THE CALL GONZALES WITHIN REACH.
[2020-03-07 16:46] VITALS: BP 174/93
[2020-03-07 20:48] VITALS: BP 165/74
--- NOTE | 2020-03-07 22:15 | NUR ---
RECEIVED PATIENT IN BED,AWAKE,ALERT,AND ORIENTED.SKIN WARM AND DRY TO TOUCH .RESPIRATION EVEN AND UNLABORED,NO RESPIRATORY DISTRESS. DENIES PAIN AND DISCOMFORT. REFUSED ACCUCHECK AND NIGHT MEDS.OFFERED 3 TIMES .STILL REFUSED. INFORMED RISK AND BENEFITS. CALL LIGHT WITHIN REACH.
--- NOTE | 2020-03-08 03:32 | NUR ---
FOLLOW CALL TO DR. BRIGGS REGARDING PHARMACY RECOMMENDATION TO CHANGE ORDER OF IRON DEXTRAN TO FERRILICIT IV AND MADE AWARE.
[2020-03-08 05:13] VITALS: BP 160/80
--- NOTE | 2020-03-08 06:00 | NUR ---
PATIENT REFUSED AM MEDICATION AND ACCUCHECK.OFFERED 3 TIMES INFORMED THE RISK AND BENEFITS OF MEDS AND CHECKING BLOOD GLUCOSE LEVEL BUT STILL REFUSED.UNABLE TO ADMINISTER FERRILICIT DUE TO NEW ORDER AND NOT AVAILABLE AT THIS TIME.PATIENT REFUSED TO REINSERT A NEW IV ACCESS DUE TO LEAKING BUT PATIENT REFUSED.WILL INFORM MD AND WILL ENDORSE TO DAY SHIFT NURSE TO FOLLOW UP.
--- NOTE | 2020-03-08 08:13 | NUR ---
0813 AM: PATIENT FLATLY REFUSED BLOOD THIS MORNING. TRIED TO EXPLAINED RISK AND BENEFITS BUT CONTINUE TO INTERRUPT THE PRIMARY NURSE. PATIENT STATES, "NO DONT WANT IT". WILL LET MD KNOW.
--- NOTE | 2020-03-08 08:15 | NUR ---
0750 AM: PATIENT REMOVED TELE. EXPLAINED RISK AND BENEFITS. HOWEVER, PATIENT CONTINUE TO BE UPSET ABOUT BEING NPO.
[2020-03-08 08:45] VITALS: BP 159/88
--- NOTE | 2020-03-08 10:18 | NUR ---
PATIENT REFUSED MAGNESIUM, COLACE, AND SEROQUEL. TRIED TO EXPLAINED RISK AND BENEFITS BUT PATIENT DOES NOT ALLOW THE PRIMARY NURSE TO SPEAK. PATIENS INTERRUPT WHILE PRIMARY NURSE SPEAKS. PATIENT IS VERY DEMANDING, ATTITUDE IS VERY RUDE TOWARD THE NURSES. COMPLAINES THAT THERE ARE TOO MANY PILIPINO NURSE AND HE DOESNT LIKE IT. HE LIKE HIS OWN RACE. ASKED IF HE WANTS ANOTHER NURSE. BUT DID NOT ANSWER. PATIENT CONTINUES TO COMPLAIN ABOUT MULTIPLE THINGS. WILL CONT TO MONITOR.
--- NOTE | 2020-03-08 12:00 | NUR ---
RECIEVED PATIENT FROM OLGA CRUZ, WILL PROVIDE CARE FOR REMAINDER OF MY SHIFT
[2020-03-08 12:12] VITALS: BP 122/86
--- NOTE | 2020-03-08 12:30 | NUR ---
BLOOD SUGAR 270, WILL ADMINISTER 9 UNITS OF REGULAR INSULIN PER SLIDING SCALE
[2020-03-08 16:32] VITALS: BP 157/86
--- NOTE | 2020-03-08 18:04 | NUR ---
PATIENTS BLOOD SUGAR 208, 6 UNITS OF REG INSULIN ADMINISTERED PER SLIDING SCALE
--- NOTE | 2020-03-08 18:07 | NUR ---
PATIENT RESTING COMFORTABLY IN BED, NO C/O PAIN OR DISCOMFORT AT THIS TIME, WILL ENDORSE CARE TO PM NURSE
--- NOTE | 2020-03-08 20:18 | NUR ---
recieved pt lying in bed asleep easily arousable by verbal stimuli.ALERT AND ORIENTED W/ NO COMPLAINED. LUNGS CLEAR BILAT.ABDOMEN SOFT W/ ACTIVE BOWEL SOUND. NO DISTRESS NOTED.
--- NOTE | 2020-03-09 02:57 | NUR ---
REMAIN CONFUSED AND SLEEPING SOUND AT THIS TIME. IV INFUSING WELL W/ NO INFILTRATION NOTED.TURNED AD RENÉ.REFUSED TO BE BOTHERD.
--- NOTE | 2020-03-09 06:40 | NUR ---
AWAKEN BY LAB TO BE DRAWN FOR BLOOD BUT STILL REFUSE AND UPSET. REFUSED TO TAKE HIS MEDICATION ALSO AND HIS ACCUCHECK. STATED WANTED TO SLEEP MORE AND DONT BOTHER ANYMORE. IF INFUSING W/ NO INFILTRATION NOTED.NO ACUTE DISTRESS NOTED.
[2020-03-09 08:41] VITALS: BP 174/86
--- NOTE | 2020-03-09 08:43 | NUR ---
WOUND CONSULT NOT DONE, PER ORDER 03/04/2020 BY PODIATRY NO DRESSING CHANGE, CALL /PAGE PLACE TO DR. NO [phone], WAITING FOR CALL BACK.
--- NOTE | 2020-03-09 11:08 | NUR ---
WOUND ASSESSMENT DONE TO THIS 64 Y/O MALE PT. RIGHT FOOT TMA, 11CM IN WIDTH, SUTURES LINE SECURED AND SURGICAL WOND DRY AND CLEAN ,NO ODOR, NO DRAINAGE, TANA WOUND SKIN DRY AND FLAKY, PAIN 2/10. LEFT 2ND DIGIT TOE S/P AMPUTATION SUTURES SECURED AND IN PLACE, NO DRAINAGE, NO ODOR, 3CM IN LENGTH, TANA WOUND-SKIN MOIST, PAIN 2/10. POC DISCUSSED WITH DR. MCLAUGHLIN AND PRIMARY RN. POC DISCUSSED WITH PT, ALL QUESTIONS ANSWERED PT. VERBALIZES UNDERSTANDING, STAFF TRANSLATED TO [facility] RECOMMENDATIONS: -CONTINUE TO FOLLOW UP PODIATRY AFTER DISCHARGE -NON-WEIGHT BEARING TO BLE,OFFLOADING/ ELEVATED BL FOOT WHEN IN BED REST -CLEANSE RIGHT FOOT AND LEFT TOE SURGICAL WOUNDS WITH NS, PAT DRY COMPLETELY, APPLY ADAPTIC DRESSING TO SUTURE SITES, COVER WITH 4X4, WRAP WITH KERLIX ROLLS AND CHRISTOPHER BANDAGE, DRESSING 3X/WEEK ON -SAT
[2020-03-09 12:43] VITALS: BP 173/88
--- NOTE | 2020-03-09 15:37 | NUR ---
Patient was noncompliant. Morning BP was 174/86 refused and medication, noon BP was 173/88, refused hydralazine. Education provided to patient about the benefits of medication and the consequencies of high blood pressure, patient still refused. Dr. Hartley notified at around noon. At noon blood sugar was 282. patient refused Lispro. Education provided to patient about the consequences of uncontrolled blood sugar, but still refused. Dr. Hartley notified at around 1300. Will continue to educate patient and monitor him.
[2020-03-09 16:45] LABS: BASOPHIL % 0.3 % (0-2); PLATELET COUNT 370 x10^3mcL (130-400)
[2020-03-09 17:02] LABS: RED CELL DISTRIBUTION WIDTH 16.2 % (11.5-14.5)
[2020-03-09 17:07] LABS: CARBON DIOXIDE 29.9 mmol/L (21-32); CHLORIDE SERUM 105 mmol/L (98-107); CREATININE SERUM 0.9 mg/dL (0.7-1.3); GFR1 > 60 mL/min; GLUCOSE SERUM 341 mg/dL (74-106); MAGNESIUM 1.8 mg/dL (1.8-2.4); PHOSPHOROUS 3.2 mg/dL (2.5-4.9); POTASSIUM SERUM 4.1 mmol/L (3.5-5.1); SODIUM SERUM 141 mmol/L (136-145)
[2020-03-09 18:00] LABS: ovalocyte/elliptocyte 1+; rbc morphology (normal/abnorm) ABNORMAL (NORMAL)
--- NOTE | 2020-03-09 19:45 | NUR ---
RECEIVED PT FROM AM NURSE, PT LAYING IN BED AWAKE. AA/O X 3 WITH CONFUSION. CLEAR SPEACH, ABLE TO MAKE NEEDS KNOWN. PT IS MED SURG. DENIES HEADACHE/ DIZZINESS/ CHEST PAIN/ CHEST PRESSURE. PULSES PALPABLE, TRACE EDEMA TO RLE. LUNG SOUNDS CTA, ON RA. RESPIRATIONS E/U. DENIES SOB, NO RESPIRATORY DISTRESS. ACTIVE BS X 4 QUADS, ABD SOFT AND NON TENDER.DENIES N/V/D. PT VOIDS USING URINAL. BEDREST, NWB TO RIGHT FOOT. AMPUTATION TO LEFT FOOT 2ND TOE AND RIGHT TOP OF FOOT. DRSG CDI. IV TO FRA INTACT, NO ERYTHEMA/ NO INFILTRATION. IV FLUIDS INFUSING WELL. NO COMPLAINTS OF PAIN. FALL PRECAUTIONS IN PLACE. CALL BUTTON WITHIN REACH, WILL CONTINUE TO MONITOR.
[2020-03-09 21:15] VITALS: BP 156/77
--- NOTE | 2020-03-09 22:30 | NUR ---
PT REFUSED X3 THE FOLLOWING PO MEDICATIONS: COLACE 100 MG, MG OXIDE 400 MG, SEROQUEL 25 MG. PT EDUCATED ON RISK AND BENEFITS OF MEDICATIONS, STILL REFUSED. PT DID LET ME GIVE HIM REG INSULIN 12 UNITS AND LANTUS 22 UNITS. IV FLUID NS BAG REPLACED AND GIVEN. WILL CONTINUE TO MONITOR.
--- NOTE | 2020-03-10 00:15 | NUR ---
PT IN BED RESTING WITH EYES CLOSED, BUT EASILY AROUSABLE. RESPIRATIONS E/U ON ROOM AIR. NO ACUTE DISTRESS AT THIS TIME. URINAL EMPTIED, 250 CC OUTPUT. CALL BUTTON WITHIN REACH, WILL CONTINUE TO MONITOR.
[2020-03-10 06:02] VITALS: BP 144/71
--- NOTE | 2020-03-10 06:38 | NUR ---
PT REFUSED BLOOD SUGAR CHECK X 3 AND YELLED AT NURSE TO "GET OUT AND LEAVE ME ALONE". PT BP WAS 144/71, HR 80 SO APRESOLINE 10 MG WAS HELD PER PARAMETER. PT SLEPT MAJORITY OF SHIFT, BUT EASILY AROUSABLE. DENIES PAIN. IV FLUIDS INFUSING WELL. DRSG TO RT FOOT CDI. NO ACUTE CHANGES OVERNIGHT. PT REMAINS IRRITABLE AND NON-COMPLIANT WITH CARE. CALL LIGHT WITHIN REACH, CARE WILL BE ENDORSED TO AM NURSE.
[2020-03-10 07:14] LABS: BASOPHIL % 0.3 % (0-2); PLATELET COUNT 363 x10^3mcL (130-400)
[2020-03-10 07:16] LABS: RED CELL DISTRIBUTION WIDTH 15.6 % (11.5-14.5)
[2020-03-10 07:20] LABS: CALCIUM 8.7 mg/dL (8.5-10.1); CHLORIDE SERUM 106 mmol/L (98-107); CREATININE SERUM 0.8 mg/dL (0.7-1.3); GFR1 > 60 mL/min; GLUCOSE SERUM 93 mg/dL (74-106); MAGNESIUM 1.8 mg/dL (1.8-2.4); PHOSPHOROUS 3.3 mg/dL (2.5-4.9); POTASSIUM SERUM 3.6 mmol/L (3.5-5.1); SODIUM SERUM 140 mmol/L (136-145)
--- NOTE | 2020-03-10 07:30 | NUR ---
RECEIVED PT FROM PM NURSE. PT AWAKE AND RESTING COMFORTABLY IN BED AT THIS TIME. NO FACIAL DISTRESS OR SOB NOTED. PT IS A/OX3 WITH EPISODES OF CONFUSION. CLEAR SPEECH. ABLE TO MAKE NEEDS KNOWN. LUNG SOUNDS CTA. BREATHING E/U ON RA. MED SURG PATIENT. DENIES CP/PRESSURE. PULSES EVEN AND PALPALBE. TRACE EDEMA NOTED TO RLE. ACTIVE BSX4. ABD SOFT AND ROUND. DENIES N/V/D. VOIDS FREELY. URINAL BY BEDSIDE. PT IS NWB TO R FOOT. AMPUTATION TO LEFT FOOT, 2ND TOE, AND RIGHT TOP OF THE FOOT. CDI. NO DRAINAGE NOTED. NO C/O PAIN AT THIS TIME. IV 22G TO RFA CURRENTLY INFUSING NS AT 100ML/HR. BED AT LOWEST POSITION. CALL BUTTON WITHIN REACH. WILL CONTINUE TO MONITOR.
[2020-03-10 08:19] VITALS: BP 172/83
[2020-03-10 09:45] LABS: burr cell (echinocyte) 1+; rbc morphology (normal/abnorm) ABNORMAL (NORMAL); tear drop cell (dacryocyte) 1+
--- NOTE | 2020-03-10 09:45 | NUR ---
NONFUNCTIONAL IV NOTED. PATIENT REFUSED IV ACCESS. EDUCATED PATIENT THE IMPORTANCE OF HAVING AN IV ACCESS AND THE NEED TO ADMINISTER MEDICATION INTRAVENOUSLY. PATIENT STILL REFUSED. REFUSED TO SIGN THE IV ACCESS REFUSAL FORM. PT STATED TO LEAVE HIM ALONE AND LET HIM REST. WILL CONTINUE TO MONITOR.
--- NOTE | 2020-03-10 11:07 | NUR ---
P.T. NOTES ATTEMPTED FOR SCHEDULED PHYSICAL THERAPY TRX SESSION. Pt AGREEABLE W/ REQUEST FOR TOILETING/HYGIENE NEEDS. WHEN PRESENTED W/ BEDSIDE COMMODE, Pt STATES THE HE LONGER WANTS TO PARTICIPATE, SAYING "JUST LEAVE ME ALONE". ATTENDING RN, ALAN, PRESENT. Pt ALSO REFUSING IV LINE ACCESS AT PRESENT. REHAB TREATMENT STATIC AT TRANSFER TRNG TO BEDSIDE COMMODE AND/OR HIGH BACK CHAIR USING SLIDING BOARD WITH ASSISTANCE SECONDARY B/L NWB STATUS S/P R TMA, L 2nd DIGIT AMP.
--- NOTE | 2020-03-10 14:02 | NUR ---
ATTEMPTED TO CHECK BP PRIOR TO BP MEDICATION ADMINISTRATION. PATIENT REFUSED AND TOLD ME TO LEAVE HIM ALONE AND SLEEP. WILL CONTINUE TO MONITOR.
[2020-03-10 15:56] VITALS: BP 132/64
--- NOTE | 2020-03-10 17:32 | NUR ---
PT REFUSED INSULIN AND BS CHECK. EXPLANIED RISKS AND BENEFITS AND PT STILL REFUSED. WILL CONTINUE TO MONITOR.
--- NOTE | 2020-03-10 18:51 | NUR ---
PT REMAINS NONCOMPLIANT THROUGHOUT SHIFT. WILL ENDORSE CARE TO PM NURSE FOR CONTINUITY OF CARE.
--- NOTE | 2020-03-10 19:20 | NUR ---
RECEIVED REPORT FROM AALN ESPINOZA. PT IS AAOX3 AND HAS PERIODS OF CONFUSION. PT DENIES US/DIZZINESS. PT IS MED-SURG AND DENIES CP/PRESSURE. PT PULSES PALPABLE AND CAP REFILL <3 SEC. PT HAS EDEMA NOTED TO RLE. PT LUNG SOUNDS CTA ON RA. PT BREATHING E/U. PT DENIES SOB OR RESP DISTRESS. PT ABD SOFT/ROUND WITH ACTIVE BS X4. PT DENIES N/V/C/D. PT VOIDS FREELY VIA URINAL. PT HAS GENERALIZED WEAKNESS AND NWB TO RIGHT FOOT. PT HAS AMPUTATION OF LEFT SECOND TOE AND RIGHT TOP OF FOOT. DRESSING CHANGED BY PODIATRY ON 03/09/20 WITH DRESSING CHANGES //. PT DENIES PAIN OR DISCOMFORT. PT HAS NO IV ACCESS, MD AWARE. PT IS UNCOOPERATIVE AND IS REFUSING CARE. CALL LIGHT WITHIN REACH. BED IN LOWEST POSITION. SIDE RAILS X2 UP. WILL CONTINUE TO MONITOR.
[2020-03-10 20:49] VITALS: BP 147/78
--- NOTE | 2020-03-10 21:10 | NUR ---
PER EMAR, SEROQUEL PO AND MAG-OX PO WERE ADMINISTERED TO PT. PT REFUSED ACCUCHECK, LANTUS SQ, AND REGULAR INSULIN SQ. PT AGITATED AND NONCOMPLIANT. PROVIDED PT WITH SNACKS AND JUICE. ALL NEEDS MET. CALL LIGHT WITHIN REACH. BED IN LOWEST POSITION. SIDE RAILS X2 UP. WILL CONTINUE TO MONITOR.
--- NOTE | 2020-03-10 22:05 | NUR ---
PT REFUSED APRESOLINE PO PER EMAR AT THIS TIME. WILL CONTINUE TO MONITOR.
--- NOTE | 2020-03-11 00:15 | NUR ---
PT RESTING COMFORTABLY WITH EYES CLOSED, EASILY AROUSABLE. NO ACUTE DISTRESS NOTED. PT BREATHING E/U ON RA. ALL NEEDS MET. WILL CONTINUE TO MONITOR.
--- NOTE | 2020-03-11 06:18 | NUR ---
PT REFUSED TO HAVE VITALS SIGNS TAKEN. PT UNDERNEATH THE BLANKETS AND STATED "GET OUT OF HERE! I AM TRYING TO SLEEP!" PT NONCOMPLIANT AND REFUSING TO HAVE ACCUCHECK, RISS COVERAGE, AND APRESOLINE PO PER EMAR. SECURITY TECHNICIAN MADE AWARE. WILL CONTINUE TO MONITOR.
--- NOTE | 2020-03-11 06:29 | NUR ---
PT RESTED COMFORTABLY DURING THE NIGHT, EASILY AROUSABLE. PT BREATHING E/U ON RA. PT DENIES SOB OR RESP DISTRESS. PT DENIES CP/PRESSURE. NO ACUTE DISTRESS NOTED DURING THE NIGHT. NO IV ACCESS, MD AWARE. PT NONCOMPLIANT WITH NURSING CARE DURING THE NIGHT. CALL LIGHT WITHIN REACH. BED IN LOWEST POSITION. SIDE RAILS X2 UP. CONTACT PRECAUTIONS MAINTAINED. WILL ENDORSE TO DAY SHIFT NURSE.
--- NOTE | 2020-03-11 07:00 | NUR ---
PER RN FLIGHT, PT REFUSED MORNING LABS. WILL MAKE BEDSPREAD CUTTER AWARE.
--- NOTE | 2020-03-11 07:09 | NUR ---
ENDORSED CARE TO ALAN RN. ALL QUESTIONS AND CONCERNS ANSWERED.
[2020-03-11 08:00] VITALS: BP 167/78
--- NOTE | 2020-03-11 09:38 | NUR ---
RECEIVED PT FROM PM NURSE. PT IS A/OX3 WITH MOMENTS OF CONFUSION. PT DENIES US/DIZZINESS. LUNG SOUNDS CTA. BREATHING E/U ON RA. MED SURG. DENIES CP/PRESSURE. TRACE EDEMA NOTED RLE. CAP REFILL <3 SEC. ACTIVE BSX4. ABD SOFT AND ROUND. DENIES N/V/D. VOIDS FREELY. URINAL AT BEDSIDE. GENERALIZED WEAKNESS NOTED. NWB TO R FOOT. PT HAS AMPUTATION OF LEFT SECOND TOE AND TOP OF THE RIGHT FOOT. DRESSING CDI. NO C/O PAIN AT THIS TIME. NO IV ACCESS. MD AWARE. PT IS UNCOOPERATIVE AND REFUSING CARE. BED AT THE LOWEST POSITION. SIDE RAILS X2 UP. CALL LIGHT WITHIN REACH. WILL CONTINUE TO MONITOR.
--- NOTE | 2020-03-11 09:42 | NUR ---
PATIENT REFUSED MORNING MEDICATION. EXPLAINED RISKS AND BENEFITS TO THESE MEDICATIONS AND PATIENT STILL REFUSED. PATIENT STATED THAT HE WILL TAKE THEM AT A LATER TIME. WILL TRY AGAIN AT A LATER TIME.
[2020-03-11 11:52] VITALS: BP 150/83
[2020-03-11 15:32] VITALS: BP 147/77
--- NOTE | 2020-03-11 16:22 | NUR ---
Follow-up Nutrition Assessment: 239A MATT VILLASEÑOR 64M Dx: ALOC, Hyperkalemia, syncope PMHx: HTN, DM Labs: Na: 135L, Glu: 123H, BUN: 27H, WBC: 11.7H, H/H: 13.5/40L (03/11) H/H 6.5/20L, POC BG 196H, (03/07) Iron 31L, TIBC 183L, (02/22) A1C 9.6H, AST 11L, Ammonia < 10L *BG WNL on 03/11 Meds: Humalog, Humulin, Cozaar, Ferrous sulfate, Klor-con, mag-ox, Seroquel, Colace Diet: CCHO PO Intake: 100% x 10 meals with average PO intake of 100% Weights: (03/11) 73.482kg Edema: edema noted to RLE Last BM: 03/10 Skin: Per water resource specialist note (03/09), right foot TMA, left 2 digit toe s/p amputation Jean: [address] (03/04): Upon visit pt was eating at bedside, when pt was asked questions he reported he needed a insurance law specialist and that he only speaks Maori, Pt's nurse reported pt understands Lao. Pt refused interview, but did tell the nurse he was eating everything. Pt refused to answer any other questions. Pt's primary nurse also reported he is eating well. RD Note (03/11): Per RN reassessment note (03/11), pt was non-compliant with care and verbally aggressive. Per progress note (03/10) pt did not have acute distress, pending SNF placement. Pt was in contact precaution d/t MRSA positive. Per pt's RN, ate everything and was tolerating diet with no chewing/swallowing difficulty or GI distress. Pt's current diet is meeting > 75% of estimated needs. Pt has low iron and H/H level, and pt currently on ferrous sulfate. Estimated Nutritional Needs Based on ideal body weight (59kg) Energy: 6812-8558 kcal/day (30-35 kcal/kg for optimal wound healing) Protein: 73-88 g/day (1.25-1.5g/kg for optimal wound healing) Fluid: 9834-2380 mL/day (1 mL/kcal) Nutrition Diagnosis: 1. Impaired nutrition utilization r/t endocrine dysfunction a/e/b pt elevated BG 165H and POC BG 155H on 03/01, A1C 9.6 on 02/22. (ongoing) 2. Increased energy and protein needs r/t skin integrity a/e/b pt infected diabetic foot ulcer. (ongoing) Intervention 1. Continue CCHO diet as tolerate 2. Recommend d/c glucerna BID 3. Recommend Jacinto BID for wound healing Recommendation provided to Dr. Reynolds, and Dr. Reynolds acknowledged. Monitor/Evaluate Goal: PO intake at least 75% of estimated needs (met, ongoing) Monitor: PO intake, Labs, GI function, skin integrity F/U in 3-5 days as moderate risk 03/14-03/16
--- NOTE | 2020-03-11 18:36 | NUR ---
PATIENT DID WELL WITH DAY SHIFT MEDICATION. HAD MOMENTS OF NONCOMPLIANCE. ENCOURAGED PT THROUGHOUT SHIFT TO TAKE HIS MEDICATION. ALL NEEDS MET. WILL ENDORSE CARE TO PM SHIFT FOR CONTINUITY OF CARE.
--- NOTE | 2020-03-11 19:32 | NUR ---
RECEIVED REPORT FROM ALAN ESPINOZA. PT IS AAOX3 WITH PERIODS OF CONFUSION. PT IS GREEN[place] SPEAKING. PT DENIES US/DIZZINESS. PT IS MED-SURG AND DENIES CP/PRESSURE. PT PULSES PALPABLE AND CAP REFILL <3 SEC. PT HAS EDEMA NOTED TO RLE. PT LUNG SOUNDS CTA ON RA. PT BREATHING E/U. PT DENIES SOB OR RESP DISTRESS. PT ABD SOFT/ROUND WITH ACTIVE BS X4. PT DENIES N/V/C/D. PT VOIDS FREELY VIA URINAL. PT HAS GENERALIZED WEAKNESS AND IS NWB TO RIGHT FOOT. PT HAS LEFT SECOND TOE AMPUTATION AND TRANSMETETARSAL AMPUTATION TO RIGHT FOOT. PT DENIES S/S OF PAIN OR DISCOMFORT AT THIS TIME. PT HAS NO IV ACCESS, MD AWARE. ALL NEEDS MET. CALL LIGHT WITHIN REACH. BED IN LOWEST POSITION. SIDE RAILS X2 UP. WILL CONTINUE TO MONITOR.
--- NOTE | 2020-03-11 21:30 | NUR ---
PT REFUSED ACCUCHECK, RISS SQ COVERAGE, LANTUS SQ, COLACE PO, SEROQUEL PO, MAG-OX PO, APRESOLINE PO AT THIS TIME. INFORMED PT IMPORTANCE OF TAKING MEDICATION AND THE RISKS AND BENEFITS OF THEM, BUT PT STILL REFUSED. PT ONLY COMPLIED TO HAVE V/S TAKEN AT THIS TIME. PROVIDED PT WITH SNACKS AND WATER. ALL NEEDS MET. WILL CONTINUE TO MONITOR.
[2020-03-11 21:59] VITALS: BP 141/68
--- NOTE | 2020-03-12 00:10 | NUR ---
PT RESTING COMFORTABLY WITH EYES CLOSED, EASILY AROUSABLE. NO ACUTE DISTRESS NOTED. ALL NEEDS MET. WILL CONTINUE TO MONITOR.
--- NOTE | 2020-03-12 06:00 | NUR ---
PT REFUSED V/S AND SCHEDULED MORNING MEDS. INFORMED PT ABOUT RISKS AND BENEFITS OF MEDS AND PT REFUSED STILL. PER PT, "IT IS TOO EARLY FOR THIS. COME TO ME AFTER SEVEN AM." WILL MAKE COMPRESSOR OPERATOR ADJUSTER AWARE.
--- NOTE | 2020-03-12 06:40 | NUR ---
PT RESTING COMFORTABLY IN BED DURING THE NIGHT, EASILY AROUSABLE. PT NONCOMPLIANT AND AGITATED WHEN WOKEN UP. PER PT, "GET OUT AND LET ME SLEEP!" PT HAS NO IV ACCESS STILL AT THIS TIME. ALL NEEDS MET. CALL LIGHT WITHIN REACH. BED IN LOWEST POSITION. SIDE RAILS X2 UP. CONTACT PRECAUTIONS MAINTAINED. WILL ENDORSE TO DAY SHIFT NURSE.
--- NOTE | 2020-03-12 07:30 | NUR ---
RECEIVED REPORT FROM NIGHT RN Pt LYING IN BED A&0 X3 ZAMBIAN SPEAKING. LUNGS CTA BILAT ON RA NO S/S OF ANY ACUTE DISTRESS. TRACE EDEMA ON BLE. LEFT TOE AMPUTATION. TRANSMETATARSAL AMPUTATED RIGHT FOOT DRESSING C/D/I. Pt REFUSES ANY IV ACCESS DR AWARE. ALL NEEDS ATTENDED TO. SAFETY PRECAUTIONS IN PLACE. WILL CONTINUE TO MONITOR.
[2020-03-12 08:39] VITALS: BP 151/81
--- NOTE | 2020-03-12 09:05 | NUR ---
PT AT BEDSIDE
--- NOTE | 2020-03-12 10:05 | NUR ---
P.T. NOTES ATTEMPTED FOR SCHEDULED PHYSICAL THERAPY Tx SESSION, Pt STATES THAT HE WANTS TO STAY IN BED AND REST. LATER OBSERVED Pt AMBULATING (B/L FWB) TO BEDSIDE CHAIR. ATTENDING RN, STEPHANY, RYNE. Pt WAS EDUCATED IN TRANSFER TRNG SECONDARY TO B/L NWB PRECAUTION ALTHOUGH HE DOES NOT COMPLY. S/P R TRANSMETATARSAL AMP, L 2nd DIGIT AMP.
[2020-03-12 12:37] VITALS: BP 165/87
--- NOTE | 2020-03-12 13:40 | NUR ---
Pt LYING IN BED WITH EYE CLOSED NO S/S OF ANY DISTRESS
--- NOTE | 2020-03-12 16:50 | NUR ---
Pt REFUSED BLOOD SUGAR CHECK AND HUMALOG 50/50 YELLING AND CUSSING IN TUNISIAN STATING"I DON'T NEED THAT...!!!" THROWING ITEMS STATING YOU KEEP WANTING TO SCAN ME HOW MANY TIMES?!" DR WESTFALL AWARE
--- NOTE | 2020-03-12 18:44 | NUR ---
Pt LYING IN BED WATCHING TV. DRESSING ON BLE C/D/I. ALL NEEDS ATTENDED TO. NO S/S OF ANY ACUTE DISTRESS. WILL ENDORSE CARE TO NIGHT RN
--- NOTE | 2020-03-12 20:00 | NUR ---
PT IS IN BED LAYING ON SIDE AT 30 DEGREES. PT IS A/O X3 WITH PERIODS OF CONFUSION. UPPER SORBIAN SPEAKER. MED SURG PATIENT. DENIES CHEST PAIN/PRESSURE. PULSES PALPABLE AND TRACE RLE EDEMA. SCDS AT BEDSIDE. ON ROOM AIR. LUNG SOUNDS CTA. NORMOACTIVE BOWEL SOUNDS X4. LAST BM 03/13/20. URINAL AT BEDSIDE. GENERALIZED WEAKNESS. NWB ON RIGHT FOOT. LEFT 2ND TOE AMPUTATION. TRANSMETATARSAL AMPUTATION ON RIGHT FOOT. DENIES PAIN AT THIS TIME. NO IV ACCESS AND MD IS AWARE. BED IN LOWEST AND LOCKED POSITION. CALL LIGHT WITHIN REACH. WILL CONT TO MONITOR.
[2020-03-12 20:41] VITALS: BP 134/53
--- NOTE | 2020-03-12 21:00 | NUR ---
PT REFUSED COLACE. HE STATES, "DO NOT ASK ME WHEN I GO TO [facility], I DO NOT ASK YOU WHEN I GO." PT ALSO STATES, "I WENT TODAY AND YESTERDAY."
--- NOTE | 2020-03-12 21:10 | NUR ---
PTS BLOOD SUGAR WAS 297 MG/DL. PT REFUSED LANTUS INSLUIN AND REGULAR INSULIN. I NOTIFED PATIENT THAT HIS BLOOD SUGAR WAS HIGH AND THE NUMBER. PT STATED, "ITS OKAY, I DO NOT WANT IT." NOTIFIED PATIENT ADVERSE EFFECTS AND EDUCATED REASONS FOR NEEDING THE INSULIN. PATIENT STILL REFUSED THE INSLUIN AFTER EDUCATION. NOTIFIED PATIENT TO LET ME KNOW IF HE EXPERIENCES ANY S/S OF HYPERGLYCEMIA. WILL CONTINUE TO MONITOR PATIENT. WILL NOTIFY DR VIA NIGHT ORDER RESIDENT SHEET.
--- NOTE | 2020-03-13 01:00 | NUR ---
PT IS SLEEPING IN BED RESTING WITH EYES CLOSED. BREATHIG E/U. NO SIGNS OF DISTRESS. WILL CONTINUE TO MONITOR PATIENT.
--- NOTE | 2020-03-13 01:27 | NUR ---
LAST MAGNESIUM LAB WAS ON 03/10/20. 1.8. MAG OXIDE IS SCHEDULED BID. WILL NOTIFY DR VIA NIGHT RESIDENT ORDER SHEET ABOUT CONTINUING MAGNESIUM LABS.
[2020-03-13 05:23] VITALS: BP 132/77
--- NOTE | 2020-03-13 05:45 | NUR ---
PT HAS REFUSED BLOOD SUGAR CHECK, SCHEDULED HYDRALAZINE BP MED, AND SCHEDULED HUMALOG 50/50 INSULIN. PT STATES, "IT IS TOO EARLY, GO AWAY." EXPLAINED TO PATIENT ADVERSE EFFECTS OF NOT RECIEVING AND CHECKING BLOOD SUGAR. PATIENT HAS NO S/S OF HYPERGLYCEMIA AT THIS TIME. WILL F/U BEFORE SHIFT CHANGE IF HE WOULD LIKE HIS BLOOD SUGAR CHECKED.
--- NOTE | 2020-03-13 06:49 | NUR ---
PT IS STILL REFUSING BLOOD SUGAR CHECK, INSULIN AND BP MED. ASKED PATIENT TO SIGN REFUSAL FOR TX FORM AND HE IS ALSO REFUSING TO SIGN THE FORM. HE STATES, "GO AWAY, LEAVE ME ALONE." WILL LEAVE FORM IN CHART AND ENDORSE TO DAY NURSE IF HE WANTS TO SIGN LATER ON. OTHERWISE BREATHING IS E/U AND NO DISTRESS NOTED AT THIS TIME.
--- NOTE | 2020-03-13 07:19 | NUR ---
PT IS BREATHING E/U. NO DISTRESS NOTED AT THIS TIME. ENDORSED CARE TO AM NURSE.
--- NOTE | 2020-03-13 08:29 | NUR ---
AAO TIMES 3. MED SURG PATIENT. LUNGS CTA. NO SOB. O2 SAT ON RA 94%. BS'S ACTIVE TIMES 4. MCDOWELL. DRESSINGS TO BLE CDI. PEDAL PULSES WEAK. TRACE EDEMA BLE. UNCOOPERATIVE AT TIMES. NO C/O PAIN.
[2020-03-13 12:10] VITALS: BP 147/81
--- NOTE | 2020-03-13 16:52 | NUR ---
REFUSED VITAL SIGNS, CUSSED AT ME IN [place].
--- NOTE | 2020-03-13 18:28 | NUR ---
AAO TIMES 4. MED SURG PATIENT. UNCOOPERATIVE AND HAS REFUSED ACCUCHECKS, INSULIN AND MEDICATIONS, DR BRUNO AWARE. VS'S STABLE AT 1200, HE REFUSED EVENING VITALS. NO C/O PAIN. NO SOB. HE SLEEPS MOST OF DAY AND EATS, HES AROUSABLE TO SLEEP, BUT WAKES UP ANGRY.
--- NOTE | 2020-03-13 20:00 | NUR ---
PT IS IN BED LAYING ON RIGHT SIDE. A/O X3. PERIODS OF CONFUSION. VIET[place]ESE SPEAKING. MED SURG PT. DENIES CHEST PAIN/PRESSURE. PULSES PALPABLE AND TRACE EDEMA TO RLE. SCDS AT BEDSIDE. ON ROOM AIR. LUNG SOUNDS CTA. NORMOACTIVE BOWEL SOUNDS X4. LAST BM 03/12/20. URINAL AT BEDSIDE. 300 ML OUT WITH DARK YELLOW URINE. GENERALIZED WEAKNESS. NWB ON RIGHT FOOT. LEFT 2ND TOE AMPUTATION. TRANSMETATARSAL AMPUTATION TO RIGHT FOOT. DRESSINGS BY PODIATRY. NO IV ACCESS. MD AWARE. DENIES PAIN AT THIS TIME. WILL CONT TO MONITOR.
[2020-03-13 20:28] VITALS: BP 155/86
--- NOTE | 2020-03-13 21:00 | NUR ---
PT HAS REFUSED BLOOD SUGAR CHECK, LANTUS INSULIN, REGULAR INSULIN AND COLACE. ADVISED PATIENT OF RISKS. ADVISED PATIENT TO NOTIFY ME IF HE HAS ANY S/S OF HYPERGLYCEMIA. NOTIFIED PATIENT TO SIGN REFUSAL FORM REGARDING HIS TX. HE REFUSED TO SIGN THIS FORM.
--- NOTE | 2020-03-14 | NUR ---
PT IS RESTING IN BED WITH EYES CLOSED. BREATHING E/U. NO DISTRESS NOTED AT THIS TIME.
--- NOTE | 2020-03-14 06:43 | NUR ---
PT REFUSED BLOOD SUGAR CHECK, INSULIN SCHEDULED, HYDRALAZINE, AM VITAL SIGNS AND AM LAB DRAW. PATIENT NOTIFIED OF ADVERSE EFFECTS. NOTIFIED PATIENT TO NOTIFY NURSE OF ANY NEW S/S. PRINTED OUT REFUSAL OF TREATMENT FORM FOR PATIENT TO SIGN BUT PATIENT REFUSED TO SIGN. REFUSAL FORMS IN THE CHART. NOTIFED CHARGE NURSE AND WROTE ABOUT REFUSALS ON NIGHT RESIDENT ORDER SHEET. PT IS BREATHING E/U. NO DISTRESS NOTED AT THIS TIME. WILL CONT TO MONITOR.
--- NOTE | 2020-03-14 07:40 | NUR ---
PT IS IN BED RESTING WITH EYES CLOSED. BREATHING E/U. NO DISTRESS NOTED. ENDORSED CARE TO AM NURSE.
[2020-03-14 08:57] VITALS: BP 132/79
--- NOTE | 2020-03-14 12:01 | NUR ---
UPDATE NOTES PT IS AWAKE AND ALERT AND IN A STABLE CONDITION WITH NO SIGNS OF ANY PAIN OR DISTRESS NOTED. PT HAS A HX OF NON-COMPLIANCE AND AGITATION BUT HAS BEEN CALM AND COOPERATIVE THUS FAR TODAY. ALL INTERVENTIONS CARRIED OUT PER PROTOCOL WITH NO SIGNIFICANT CHANGES IN PT STATUS NOTED. WILL CONTINUE TO MONITOR.
[2020-03-14 13:18] VITALS: BP 168/82
[2020-03-14 13:26] VITALS: BP 146/80
[2020-03-14 18:01] VITALS: BP 147/72
--- NOTE | 2020-03-14 19:45 | NUR ---
PATIENT IS IN BED LAYING ON SIDE AT 45 DEGREES. A/O X3. PERIODS OF CONFUSION. MED SURG PATIENT. PULSES PALPABLE. RLE TRACE EDEMA. ON ROOM AIR. LUNG SOUNDS CTA. NORMOACTIVE BOWEL SOUNDS X4. LAST BM 03/12/20. URINAL AT BEDSIDE. GENERALIZED WEAKNESS BUT AMBULATORY. NWB ON RIGHT FOOT. LEFT 2ND TOE AMPUTATION AND RIGHT METATARSAL AMPUTATION. DENIES PAIN AT THIS TIME. NO IV ACCESS. DR AWARE. AGITATION NOTED. BED IN LOWEST AND LOCKED POSITION. CALL LIGHT WITHIN REACH. WILL CONT TO MONITOR.
[2020-03-14 20:50] VITALS: BP 112/76
--- NOTE | 2020-03-14 21:15 | NUR ---
PATIENT REFUSED COLACE HE STATES HE PASSED BM TODAY. PATIENT REFUSED LANTUS BUT AGREED TO TAKE THE COVERAGE OF 3U OF REG INSULIN.
--- NOTE | 2020-03-15 | NUR ---
PATIENT RESTING WITH EYES CLOSED. BREATHING E/U. NO DISTRESS NOTED AT THIS TIME.
--- NOTE | 2020-03-15 06:43 | NUR ---
PT IS REFUSING BLOOD SUGAR CHECK, INSULIN AND BP MED. ASKED PATIENT TO SIGN REFUSAL FOR TX FORM AND HE IS ALSO REFUSING TO SIGN THE FORM. HE STATES, "GO AWAY, LEAVE ME ALONE." WILL LEAVE FORM IN CHART. OTHERWISE BREATHING IS E/U AND NO DISTRESS NOTED AT THIS TIME.
--- NOTE | 2020-03-15 07:42 | NUR ---
PT IS RESTING IN BED WITH EYES CLOSED. BREATHING E/U. NO DISTRESS NOTED AT THIS TIME. ENDORSED CARE TO AM NURSE.
[2020-03-15 08:47] VITALS: BP 115/62
[2020-03-15 12:54] VITALS: BP 164/81
[2020-03-15 17:09] VITALS: BP 150/83
--- NOTE | 2020-03-15 19:47 | NUR ---
PATIENT WAS NONCOMPLIANT TO MORNING MEDICATIONS, BLOOD SUGAR CHECKS AND INSULINS. EDUCATION PROVIDED ABOUT THE INDICATIONS OF THE MEDICATIONS, IMPORTANCE OF BLOOD PRESSURE AND BLOOD SUGAR CONTROL, PATIENT STILL REFUSED MORNING MEDICATIONS, NOON BLOOD SUGAR COVERAGE. INFORMED
--- NOTE | 2020-03-15 20:05 | NUR ---
RECEIVED REPORT FROM OUTGOING NURSE.RECEIVED PATIENT IN BED.AWAKE,ALERT ,AND ORIENTED.CYMRO SPEAKING BUT ABLE TO LET NEEDS KNOWN TO OTHERS.DRESSINGD TO LT.END TOE AMPUTATION AND RT. FOOT INTACT,NO DRAINAGE.DENIESPAIN AND DISCOMFORT.CALL LIGHT WITHIN REACH.
[2020-03-15 21:30] VITALS: BP 149/65
[2020-03-16 08:33] VITALS: BP 112/72
--- NOTE | 2020-03-16 09:00 | NUR ---
PATIENT IS AOX4, RESPIRATIONS EVEN AND UNLABORED ON ROOM AIR. DENIES PAIN AT THIS TIME. S/P LEFT SECOND TOE AMPUTATION AND RIGHT FOOT TRANSMETATARSAL AMPUTATION. DRESSINGS ARE CLEAN DRY INTACT. PULSES INTACT. REFUSED BLOOD DRAWS. NO IV ACCESS, MD AWARE. WILL CONTINUE TO MONITOR.
--- NOTE | 2020-03-16 12:21 | NUR ---
P.T. NOTES Pt REFUSED TO PARTICIPATE IN IN P.T. TREATMENT SESSION.
--- NOTE | 2020-03-16 12:24 | NUR ---
PATIENT REFUSED INSULIN 50/50, SAYS THAT HE ONLY WANTS ONE INSULIN. EDUCATED PATIENT ON IMPORTANCE OF INSULIN ON HIS HIGH BLOOD SUGAR. PATIENT STILL REFUSED STATING ITS "MY BODY." WILL CONTINUE TO MONITOR.
[2020-03-16 12:54] VITALS: BP 110/60
--- NOTE | 2020-03-16 15:51 | NUR ---
1. Continue CCHO diet as tolerate 2. Continue Jacinto BID for wound healing
--- NOTE | 2020-03-16 15:51 | NUR ---
Follow-up Nutrition Assessment: 239A MATT VILLASEÑOR 64M MR Dx: ALOC, Hyperkalemia, syncope PMHx: HTN, DM Labs: Na: 135L, Glu: 123H, BUN: 27H, WBC: 11.7H, H/H: 13.5/40L (03/10) H/H 6.5/20L, POC BG 196H, (03/07) Iron 31L, TIBC 183L, (02/22) A1C 9.6H, AST 11L, Ammonia < 10L *BG WNL on 03/11, No new labs updated on 03/16 Meds: Seroquel, Cozaar, Ferrous sulfate, Mg-ox, Colace, Apresoline, klor-con, Humulin, Humalog Diet: CCHO with Jacinto BID PO Intake: 50-100% x 10 meals with average PO intake of 90% Weights: (03/16) 73.482kg, (03/11) 73.482kg Edema: trace edema noted to RLE Last BM: 03/12 Skin: left 2nd toe amputation, transmetatarsal amputation of the right foot Jean: [address] (03/11): Per RN reassessment note (03/11), pt was non-compliant with care and verbally aggressive. Per progress note (03/10) pt did not have acute distress, pending SNF placement. Pt was in contact precaution d/t MRSA positive. Per pt's RN, ate everything and was tolerating diet with no chewing/swallowing difficulty or GI distress. Pt's current diet is meeting > 75% of estimated needs. Pt has low iron and H/H level, and pt currently on ferrous sulfate. RD Note (03/16): Per Progress note (03/15) pt refusing medication and awaiting SNF placement. At the time of visit, pt was being assisted by RN, and pt refused his insulin. Pt appeared to be agitated and non-compliant. Per pt's RN, pt had good appetite and finished 100% of his breakfast today, and pt did not exhibit signs of GI distress. Estimated Nutritional Needs Based on ideal body weight (59kg) Energy: 3147-0696 kcal/day (30-35 kcal/kg for optimal wound healing) Protein: 73-88 g/day (1.25-1.5g/kg for optimal wound healing) Fluid: 1199-8551 mL/day (1 mL/kcal) Nutrition Diagnosis: 1. Impaired nutrition utilization r/t endocrine dysfunction a/e/b pt elevated BG 165H and POC BG 155H on 03/01, A1C 9.6 on 02/22. (ongoing) 2. Increased energy and protein needs r/t skin integrity a/e/b pt infected diabetic foot ulcer. (ongoing) Intervention 1. Continue CCHO diet as tolerate 2. Continue Jacinto BID for wound healing Monitor/Evaluate Goal: PO intake at least 75% of estimated needs (met, ongoing) Monitor: PO intake, Labs, GI function, skin integrity F/U in 7 days as low risk 03/23
[2020-03-16 16:52] VITALS: BP 117/57
--- NOTE | 2020-03-16 16:57 | NUR ---
1525: PATIENT WAS FOUND UNRESPONSIVE SITTING IN CHAIR AT BEDSIDE. [facility] RESPONSE CALLED. PLEASE SEE RAPID RESPONSE RECORD IN CHART. [id number]: VITALS STABLE, PATIENT IS ALERT AWAKE AND ORIENTED, AGITATED AND UNCOOPERATIVE WITH CARE. ASSISTED TO BEDSIDE COMMODE, PATIENT ABLE TO HAVE A LARGE BOWEL MOVEMENT. RETURNED TO BED, PATIENT IS RESTING COMFORTABLY.
--- NOTE | 2020-03-16 18:37 | NUR ---
PATIENT IS RESTING IN BED, REFUSED INSULIN AND OTHER MEDICATIONS. CLOSE OBSERVATION PROVIDED. VITAL SIGNS STABLE AT THIS TIME. WILL ENDORSE TO NIGHT RN.
[2020-03-16 20:38] VITALS: BP 155/86
--- NOTE | 2020-03-17 00:12 | NUR ---
1915RECEIVED REPORT FROM OUTGOING NURSE.RECEIVED PATIENT IN BED.PATIENTAWAKE,ALERT,AND ORIENTED WITH PERIOD OF CONFUSION.RESPIRATION EVEN AND UNLABORED,NO RESPIRATORY DISTRESS.DENIES PAIN AND DISCOMFORT.ON 1:1 SITTER AT THIS TIME FOR SAFETY,
[2020-03-17 05:37] VITALS: BP 114/59
[2020-03-17 08:28] VITALS: BP 130/67
[2020-03-17 12:31] VITALS: BP 108/53
[2020-03-17 16:18] VITALS: BP 91/50
--- NOTE | 2020-03-17 18:03 | NUR ---
PATIENT IS AAO*4, PERSON, PLACE, TIME AND SITUATION, ANXIOUS, AGITATED, YELLED AT STAFF AND NONCOMPLIANT TO CARE, PATIENT REFUSED EVENING ACCU CHECK ALONG WITH MEDICATION, 1ST ATTEMPT FOR ACCUCHECK STATED HE IS SLEEPING, 2ND ATTEMPT FOR ACCUCHECK PATIENT STATED HE IS GOING TO EAT -TRY TO EDUCATE PATIENT ABOUT CHECKING GLUCOSE BEFORE DINNER PATIENT YELLED "IM EATING"
--- NOTE | 2020-03-17 18:30 | NUR ---
APPROX 1800 PATIENT IS BEING NON-COMPLIANT WITH CARE - REFUSED WOUND CARE DRESSING- TRY TO EDUCATE AGAIN ABOUT RISK FOR INFECTION - PATIENT REFUSED
--- NOTE | 2020-03-17 20:18 | NUR ---
REC EIVED REPORT FROM OLGA QUINTANA.PATIENT IN BED.AWAKE,ALERT ,AND ORIENTED WITH PERIOD OF CONFUSION.SKIN WARM AND DRY TO TOUCH.RESPIRARION EVEN AND UNLABORED,NO RESPIRATORY DISTRESS.NSR WITH BBB ON TELE MONITOR.PATIENT REMOVED TELE MONITOR.CALL LIGHT WITHIN REACH.
[2020-03-17 21:03] VITALS: BP 139/72
[2020-03-18 05:53] VITALS: BP 140/77
[2020-03-18 08:31] VITALS: BP 168/80
--- NOTE | 2020-03-18 09:00 | NUR ---
PATIENT IS AOX3, RESPIRATIONS EVEN AND UNLABORED ON ROOM AIR. VITAL SIGNS STABLE. 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 PATIENT HAD POSSIBLE VASOVAGAL AFTER BEARING DOWN TWO DAYS AGO. EDUCATED ON IMPORTANCE OF COLACE AND STOOL SOFTENER BUT PATIENT REFUSED. DENIES PAIN AT THIS TIME. UPDATED PATIENT ON PLAN OF CARE, FALL PRECAUTIONS IN PLACE. WILL CONTINUE TO MONITOR.
--- NOTE | 2020-03-18 10:19 | NUR ---
SPOKE TO [place] [employer] CARBONIZER, GAVE UPDATES ON STATUS, RECENT LABS, ETC. SHE WILL WORK ON FINDING PLACEMENT FOR THIS PATIENT.
--- NOTE | 2020-03-18 14:00 | NUR ---
WOUND CARE RE-EVALUATION NOTE WOUND ASSESSMENT DONE. PER CHARGE NURSE, PT REFUSED WOUND CARE FROM OTHER NURSES. PT IS YELLING TO WOUND CARE NURSE DURING THE ASSESSMENT. PT. DEMANDS TO SEE DOCTOR, PROCEDURES EXPLAINED, PT. STATE" YOUR ARE NOT A DOCTOR." EVEN THOUGH PT CLAIMS THAT HE SPEAKS CYPRIOT ONLY BUT PT IS VERBALLY ABUSIVE WITH OFFENSIVE RACIAL SLUR IN ARABIC TO WOUND CARE NURSE. WOUND CARE NURSE REQUEST AN HISTORICAL RECORDS ADMINISTRATOR TO WITNESS THE SITUATION AND THEN HIS BEGAVIOR CHANGE. ACCORDING PROGRESS NOTE FROM INDUSTRIAL GAS SERVICE HELPER, ATTEMPED TO CHANGE DRESSING ON 03/16/2020 AND PT. REFUSED. POC DISCUSSED WITH CHARGE NURSE AND PRIMARY RN. WILL CONTINUE CURRENT TREATMENT PLAN. -RIGHT FOOT TMA, 11CM IN WIDTH, SUTURES LINE SECURED AND SURGICAL WOUND MOIST AND CLEAN ,NO ODOR, NO DRAINAGE, TANA WOUND SKIN INTACT -LEFT 2ND DIGIT TOE S/P AMPUTATION SUTURES SECURED AND IN PLACE, NO DRAINAGE, NO ODOR, 3CM IN LENGTH, [id number] DRY AND FLAKY, INTERSPACES BETWEEN TOES ARE MOIST, NO ODOR
--- NOTE | 2020-03-18 14:39 | NUR ---
WOUND WAS CHANGED BY WOUND CARE NURSE, TOLERATED WELL WITH NO COMPLAINTS OF PAIN. DRESSING IS CLEAN, DRY, AND INTACT. HAS BEEN COOPERATIVE WITH CARE SO FAR. WILL CONTINUE TO MONITOR.
--- NOTE | 2020-03-18 17:20 | NUR ---
PATIENT IS AGITATED AND REFUSING BLOOD SUGAR MONITORING. EDUCATED PATIENT ON IMPORTANCE OF BLOOD SUGAR CHECKS AND INSULIN. PATIENT STILL REFUSED.
--- NOTE | 2020-03-18 18:16 | NUR ---
PATIENT ALLOWED BLOOD SUGAR CHECK- 250, BUT REFUSED INSULIN. SITTING UP AND EATING DINNER, TOLERATING WELL. NO COMPLAINTS AT THIS TIME. WILL ENDORSE TO NIGHT RN.
[2020-03-18 21:32] VITALS: BP 138/72
--- NOTE | 2020-03-19 01:32 | NUR ---
1929 - PT RECEIVED LYING IN BED SUPINE WATCHING TV. A/OX4, CALM BUT NON-COMPLIANT. SL L HAND "CAME OUT", DRESSING APPLIED, PT REFUSED RESTART. RN ATTEMPTED TO EDUCATE PT ON PURPOSE/IMPORTANCE OF HAVING AND IV BUT PT WOULD TALK OVER RN AND THEN PROCEEDED TO SAY "PUT IT WHEN I NEED IT, NO ONES USED IT IN 4 DAYS". RN ATTEMPTED TO EXPLAIN FURTHER, BUT PT WOULD AGAIN TALK OVER RN. NO IV AT THIS TIME. RESPIRATIONS UNLABORED, DENIES SOB. REPORTS LBM 03/16. URINE CLEAR YELLOW, RN ATTEMPTED TO EMPTY URINAL, PT WOULD NOT ALLOW. DRESSING TO BILATERAL FEET C/D/I. PT DENIES PAIN. BED IN LOWEST POSITION, SIDE RAILS X 2, CALL LIGHT WITHIN REACH
--- NOTE | 2020-03-19 01:38 | NUR ---
22:05 FS 271. PT REFUSED COVERAGE. PT STATES THAT BS WAS IN 300S AND NOW ITS IN 200S WITHOUT INSULIN. RN ATTEMPTED TO EDUCATE PT ON THE PURPOSE OF INSULIN AND RISKS ASSOCIATED WITH KEEPING HIGH BS. PT REFUSED COVERAGE DESPITE EDUCATION BUT ALLOWED FOR ADMISNITRATION OF LANTUS 25 UNITS
--- NOTE | 2020-03-19 01:40 | NUR ---
PT SLEEPING SUPINE AT THIS TIME. NON-VERBAL PAIN INDICATORS ABSENT. NO SOB NOTED. BED IN LOWEST POSITON, SIDE RAILS X2, CALL LIHT WITHIN REACH
[2020-03-19 05:36] VITALS: BP 138/69
--- NOTE | 2020-03-19 06:47 | NUR ---
FS 227. PT ALLOWED FOR 50/50 INSULIN TO BE ADMINISTERED, BUT REFUSED COVERAGE. RN EXPLAINED TO PT THE IMPORTANCE OF USING INSULIN BUT PT REPLIED "NO NO NO, ONE IS ENOUGH". PT DENIES PAIN AT THIS TIME, SOB, N/V. ALL NEEDS MET. BED IN LOWEST POSITION, SIDE RAILS X 2, CALL LIGHT WITHIN REACH
--- NOTE | 2020-03-19 07:49 | NUR ---
PATIENT IS AOX3, RESPIRATIONS EVEN AND UNLABORED ON ROOM AIR. PATIENT DENIES PAIN AT THIS TIME. BILATERAL WOUNDS ARE CLEAN DRY INTACT, DRESSING DONE YESTERDAY 03/18. PATIENT REFUSED VITAL SIGNS AND IS AGITATED. EDUCATED PATIENT ON PLAN OF CARE. PATIENT IS RESISTIVE TO LEARNING. WILL CONTINUE TO MONITOR.
--- NOTE | 2020-03-19 12:31 | NUR ---
PATIENT REFUSED BLOOD SUGAR MONITORING AND INSULIN. EDUCATED ON IMPORTANCE OF BLOOD SUGAR MONITORING ON WOUND HEALING. AGITATED, RAISING HIS VOICE AND YELLING AT RN.
--- NOTE | 2020-03-19 12:55 | NUR ---
SPOKE TO JET STOUT MANAGER AT [facility], UPDATED ON STATUS.
[2020-03-19 14:30] VITALS: BP 136/60
--- NOTE | 2020-03-19 18:22 | NUR ---
PATIENT WAS COOPERATIVE WITH CARE THIS EVENING. AMBULATED TO BATHROOM WITH ASSIST. PATIENT IS UNSTEADY. NO COMPLAINTS OF PAIN AT THIS TIME. WILL ENDORSE TO NIGHT RN.
--- NOTE | 2020-03-19 18:54 | NUR ---
PATIENT COMPLAINS THAT THE DRESSING ON HIS FOOT IS "TOO TIGHT." WOUND CARE AND DRESSING CHANGE DONE PER ORDER. PATIENT TOLERATED WELL, SAYS THAT IT "FEELS BETTER"
--- NOTE | 2020-03-19 19:23 | NUR ---
RECEIVED SHIFT REPORT FROM DAY RN TE. PT AWAKE, ALERT, FORGETFUL. BED ALARM SET. C/O DISCOMFORT TO FOOT AFTER DRESSING CHANGE. RECEIVED TYLENOL PER REPORT. UPDATED ON POC. CALL GONZALES WITHIN REACH, SAFETY CHECKS COMPLETE. CARE ONGOING.
[2020-03-19 20:00] VITALS: BP 144/71
--- NOTE | 2020-03-20 00:42 | NUR ---
PT ALLOWED FOR HS BLOOD SUGAR CHECK AND LANTUS. REFUSED ANY SSI COVERAGE. RIGHT FOOT DRESSING REAPPLIED X2. SECOND TIME REINFORCED WITH TAPE, BUT TP FOUND SITTING UP IN BED REMOVING BANDAGE. 2ND BANDAGING HAD BEEN DONE TO PTS REQUEST, BECAUSE HE STATED IT WAS TOO TIGHT ALL DAY. PT DENIED THAT LAST DRESSING WAS TOO TIGHT, BUT IS UNABLE TO VERBALIZE WHY HE WANTS IS OFF AT THIS TIME. RN REINFORCED RISK OF POSSIBLE INFECTION/COMPROMISE OF SUTURES. PER PT, "DON'T SAY ANYTHING TO ME". WILL CONTINUE TO EDUCATE PT & ATTEMPT REDRESSING.
--- NOTE | 2020-03-20 06:23 | NUR ---
PT REFUSING SOME ASPECTS OF CARE THIS AM. RN ACCOMPANIED INSTRUCTOR DECORATING DURING AM ROUNDS. PT STILL REFUSES LABS DESPITE EDUCACTION ON IMPORTANCE/POSSIBLE RISKS/CONSEQUENCES. "NO MORE STICKING ME!" PT REFUSED BS CHECK THIS AM; UNABLE TO ASSESS FOR SSI & ALSO REFUSED TO HAVE ANY SQ INJECTION THIS AM. AFEBRILE, VSS THIS AM. PT REMAINS CONSISTENTLY RESISTANT TO CARE. WILL CONTIUNUE TO REINFORCE GOOD PRACTICES/HABITS.
[2020-03-20 06:47] VITALS: BP 153/81
[2020-03-20 08:28] VITALS: BP 131/77
[2020-03-20 12:41] VITALS: BP 148/85
--- NOTE | 2020-03-20 16:27 | NUR ---
PATIENT AAOX3 SIMPLE FOLLOW COMMANDS CONTACT ISOLATION DUE TO MRSA POSITIVE ROOM AIR NO SOB NON LABORED BREATHING ABDOMEN SOFT NON TENDER DIET TOLERATED SKIN IS DRY RT FOOT LT 2ND TOE DRESSING INTACT PT DENIED CHEST PAIN ANY PAIN PATIENT ONLY ALLOW TO DO ACCU CHECK ONCE BUT NO INSULIN MEDICATION NO NEEDLE YELLING OUT EXPLAINED TO PT HIGH SUGAR NEED MEDICATION BUT PT REFUSED TO INSULIN INJECTION WILL CONTINUE MONITOR CLOSE OBSERVATION
--- NOTE | 2020-03-20 19:35 | NUR ---
PT RECEIVED FROM AM NURSE. PT A/O X3 W/ EPISODES OF CONFUSIONS, ABLE TO MAKE NEEDS KNOWN. MED-SURG, NO S/S OF CP/PRESSURE OBSERVED. PULSES PALPABLE, TRACE EDEMA TO RLE. BREATHING IS EVEN AND UNLABORED ON RA, ON RESP DISTRESS NOTED. ABD SOFT AND NONDISTENDED, DENIES N/V. VOIDS FREELY, URINAL AT BEDSIDE, BUT MAY HAVE EPISODES OF URINARY INCONTINENCE. GENERALIZED WEAKNESS, NWB TO RT FOOT. DRSGs IN PLACE TO RLE AND LLE, CDI. PT DENIES HAVING ANY PAIN AT THIS TIME. PT MAY HAVE EPISODES OF IRRITABILITY AND AGITATION; PT VERY NONCOOPERATIVE W/ NURSING CARE. PT REFUSING IV ACCESS, RESIDENT AWARE. NO ACUTE DISTRESS NOTED. BED IN LOWEST SETTING, SIDE RAILS UP X2, CALL LIGHT WITHIN REACH. WILL CONT TO MONITOR.
[2020-03-20 20:49] VITALS: BP 114/65
[2020-03-21 06:01] VITALS: BP 117/60
--- NOTE | 2020-03-21 06:22 | NUR ---
PT SLEPT WELL THROUGHOUT THE EVENING. BREATHING IS EVEN AND UNLABORED, NO RESP DISTRESS NOTED. PT DENIES HAVING ANY PAIN AT THIS TIME. PT HAD EPISODES OF AGITATION AND IRRITABILITY DURING SHIFT AND REFUSED NURSING CARE AT TIMES. PT CONT TO REFUSE IV REINSERTION DESPITE MULTIPLE ATTEMPTS OF EDUCATION. NO ACUTE CHANGES ENCOUNTERED DURING SHIFT. ALL NEEDS MET AND ANTICIPATED. CALL LIGHT WITHIN REACH. WILL ENDORSE CARE TO AM NURSE.
--- NOTE | 2020-03-21 07:25 | NUR ---
PT RECEIVED FROM PM NURSE. PT IS A/OX3. CONFUSED AT TIMES. ABLE TO MAKE NEEDS KNOWN. DENIES US/DIZZINESS. LUNG SOUNDS CTA. BREATHING E/U ON RA. DENIES SOB. MED SURG PT. DENIES CP/PRESSURE. PULSES PALPABLE. TRACE EDEMA NOTED TO RLE. ACTIVE BS X4. ABD SOFT AND ROUND. DENIES N/V/D. VOIDS FREELY. URINAL BY BEDSIDE. GENERALIZED WEAKNESS NOTED. NWB TO RT FOOT. DRESSING IN PLACE TO RLE AND LLE. LAST CHANGED AT 03/20/20. CDI. NO C/O PAIN AT THIS TIME. PT REFUSED IV ACCESS. RESIDENT AWARE. BED AT LOWEST POSITION. SIDE RAILS X2. CALL BUTTON WITHIN REACH. WILL CONTINUE TO MONITOR.
[2020-03-21 08:54] VITALS: BP 155/48
[2020-03-21 08:55] VITALS: BP 114/61
[2020-03-21 13:04] VITALS: BP 104/59
--- NOTE | 2020-03-21 17:32 | NUR ---
PATIENT WAS OBSERVED SITTING UP ON THE FLOOR AT APPROXIMATELY 3:45PM. PATIENT STATED THAT HE WAS TRYING TO GET UP TO USE THE BATHROOM UNASSISTED. ROM INTACT. C/O 2/10 PAIN TO HIS RIGHT KNEE. PERLLA. A/OX4. NO ABRASION OR BRUISES NOTED. POST FALL VITALS TAKEN. 98.5 127/72 [address] ASHLEY BURT, AWAITING RESPONSE AT THIS TIME.
--- NOTE | 2020-03-21 18:24 | NUR ---
PT IS SLEEPING COMFORTABLY AT THIS TIME. NO ACUTE DISTRESS NOTED. WILL ENDORSE CARE TO PM SHIFT FOR CONTINUITY OF CARE.
--- NOTE | 2020-03-21 19:15 | NUR ---
PT RECEIVED FROM AM NURSE. PT A/O X3 W/ EPISODES OF CONFUSIONS, ABLE TO MAKE NEEDS KNOWN. MED-SURG, NO S/S OF CP/PRESSURE OBSERVED. PULSES PALPABLE, TRACE EDEMA TO RLE. BREATHING IS EVEN AND UNLABORED ON RA, ON RESP DISTRESS NOTED. ABD SOFT AND NONDISTENDED, DENIES N/V. VOIDS FREELY, URINAL AT BEDSIDE, BUT MAY HAVE EPISODES OF URINARY INCONTINENCE. GENERALIZED WEAKNESS, NWB TO BLE PER WOUND CARE NURSE, BUT PT IS NONCOMPLIANT AND ATTEMPTS TO AMBULATED TO BATHROOM USING CANE. DRSGs IN PLACE TO RLE AND LLE, CDI. PT DENIES HAVING ANY PAIN AT THIS TIME. PT MAY HAVE EPISODES OF IRRITABILITY AND AGITATION; PT VERY NONCOOPERATIVE W/ NURSING CARE. PT REFUSING IV ACCESS, RESIDENT AWARE. NO ACUTE DISTRESS NOTED. BED IN LOWEST SETTING, SIDE RAILS UP X2, CALL LIGHT WITHIN REACH. WILL CONT TO MONITOR.
--- NOTE | 2020-03-21 21:46 | NUR ---
PT VERY AGITATED AT THIS TIME AND YELLING AT STAFF. PT REFUSED ALL MEDICATIONS, ACCUCHECK, AND VITAL SIGNS THIS EVENING, AND DR NAVARRETE MADE AWARE. NO NEW ORDERS RECEIVED. PT CONT TO YELL AT STAFF STATING, "DINNER! DINNER! I WANT MY DINNER!" OFFERED SANDWICHES AND SNACKS, PT REFUSED AND STATED, "SANDWICHES ARE FOR DOGS! I WANT SAUSAGES!" INFORMED PT THAT OUR KITCHEN IS CLOSED AT THIS TIME AND UNABLE TO HAVE SAUSAGES BROUGHT UP. OFFERED SANDWICHES AND SNACKS AGAIN, PT REFUSED AND YELLED, "NO THANK YOU, SANDWICHES ARE FOR DOGS!" PT RESTING IN BED AT THIS TIME. NO ACUTE DISTRESS NOTED. INSTRUCTED PT TO USE CALL LIGHT FOR HELP. WILL CONT TO MONITOR.
--- NOTE | 2020-03-22 03:20 | NUR ---
PT RESTING IN BED, AWAKE AND ALERT. PT APPEARS CALM AND COOPERATIVE. HOT TEA AND JEVON CRACKERS GIVEN PER PT'S REQUEST. NO ACUTE DISTRESS NOTED. CALL LIGHT WITHIN REACH. WILL CONT TO MONITOR.
[2020-03-22 05:56] VITALS: BP 138/47
--- NOTE | 2020-03-22 06:27 | NUR ---
PT SLEPT AND INTERVALS THROUGHOUT THE EVENING. BREATHING IS EVEN AND UNLABORED, NO RESP DISTRESS NOTED. PT IS AGITATED AT THIS TIME. PT AGREEABLE TO HAVING VS, ACCUCHEK, AND AM ORAL MEDS, BUT REFUSES INSULIN. EDUCATED PT ON IMPORTANCE OF TREATMENTS INCLUDING DRSG CHANGES, PT YELLED, AND CONTINUES TO BE NONCOMPLIANT W/ NURSING CARE. NO ACUTE CHANGES ENCOUNTERED DURING SHIFT. ALL NEEDS MET AND ANTICIPATED. CALL LIGHT WITHIN REACH. WILL ENDORSE CARE TO AM NURSE.
--- NOTE | 2020-03-22 07:30 | NUR ---
RECIEVED REPORT FROM HAYLEE ESPINOZA PM, PT SLEEPING IN BED, IN NO APPARENT ACUTE DISTRESS/PAIN, NO FACIAL DROOP, MEDSURG, RESP E/U, RA, NO SOB/COUGH/WHEEZING, CHEST RISE SYMMETRICALLY, ABD FLAT/NONTENDER, BS ACTIVE X 4, PALP PULSES, CAP REFILL < 2S, SKIN C/D/W, SEE SHIFT ASSESSMENT, AMB W/ ASSIST, NWB RIGHT FOOT, INCONTINENT AT TIME, NO IV ACCESS PER PT REFUSED, MD AWARE, DRESSING CDI, ALL NEEDS ADDRESSED, SAFETY PROTOCOL FOLLOWED, CONTINUE TO MONITOR
--- NOTE | 2020-03-22 08:32 | NUR ---
PT REQUEST ANOTHER BREAKFATS TRAY AND EXTRA SCRAMBLE EGG, NUTRITION DEPT AWARE, KITCHEN AWARE, SAID ROSEMARIE BRING MARY, CN AWARE, PT AWARE, CONTINEU TO [facility]
[2020-03-22 08:53] VITALS: BP 149/70
--- NOTE | 2020-03-22 09:27 | NUR ---
PT REFUSED AM MED, REFUSED TO HAVE ID ARMBAND SCAN PER POLICY, SARA HALE REPORTED PT VERBALLY ABUSE STAFF, SOLEDAD MICHELE MD AWARE OF PT BEHAVIOR, PT REFUSED EDUCATION R/T RISK OF REFUSE MED AND HEALTH CONDITION, YELLING AT STAFF, EXTRA BREAKFAST GIVEN PRE PT REQUEST, PT RESTING IN BED IN NO ACUTE DISTRESS/PAIN, CONTINEU TO MONITOR
--- NOTE | 2020-03-22 12:02 | NUR ---
PT REFUSED ACCU CHECK, AWARE OF RISK OF BS NOT WELL-CONTROLLED, STILL REFUSED, CN TAHMINA AWARE, DR ESTRADA AWARE, NNO, CONTINUE TO MONITOR
[2020-03-22 12:48] VITALS: BP 155/86
--- NOTE | 2020-03-22 12:53 | NUR ---
PT REFUSED MED, VERBALLY ABUSE AND YELLED AT NURSING STAFF "YOU'RE MY SERVANT. YOU GOT PAID TO DO THAT". PT AWARE OF NURSING STAFF WORKING TO HELP PT AND OTHER PT ON THE FLOOR WELL, NOT HIS OWN SERVANT AND PT SHOULD NOT THREW URINE ON THE FLOOR, PT AWARE NOT TO PUT BODY WEIGHT TO RIGHT FOOT, NWB TO RIGHT FOOT PER WOUND LOCALTION, REFUSED DRESSING CHANGE PER MD ORDER, PT AWARE OF RISK OF INFECTION W/ POSSIBLE CONTAMINATED DRESSING, STILL NON-COMPLIANT, SOLEDAD DWYER AWARE, CONTINUE TO MONITOR
--- NOTE | 2020-03-22 14:39 | NUR ---
PT RESTING IN BED, WATCHING TV, IN NO PAIN/DISTRESS, PT REFUSED WOUND DRESSING CARE AT THIS TIME, SAID "DO NOT BOTHER ME", PT AWARE RISK OF NOT HAVING DRESING CHANGE DAILY PER MD ORDER, STILL RESISTANT TO CARE AND EDUCATION, PT ASKED IF OK FOR ANOTHER NURSE TO CHANGE WOUND DRESSING WHENEVER PT FELL MORE COMFORTABLE FOR WOUND DRESSING CHANGE, SAID "I TOLD YOU NOT TO BOTHER ME", MD AWARE, CN AWARE, CONTINUE TO MONITOR
--- NOTE | 2020-03-22 16:55 | NUR ---
PT REFUSED HAVING WOUND DRESSING CHANGE AT THIS TIME, PT CLAIMED SPEAKING BHUTANESE ONLY AND REQUEST NURSE TO SPEAK MONTSERRATIAN TO PT, INTEPRETATION SERVICE SUGGESTED FOR BETTER COMMUNICATION, PT REFUSED AND VERBALLY ABUSE NURES IN MONTSERRATIAN "YOU SINGH ALGERIAN NEED TO SPEAK BHUTANESE. 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 I PAY YOU GUYS" PT AWARE NOT ALL NURSE COMES FROM [facility] AND NOT TO SAY RACIST THING TO NURSING STAFF PROVIDING CARE FOR PT, PT SAID "YOU'RE FILIPPINE CAUSED YOU'RE DARK SKIN". PT STILL CURSING NURSING STAFF IN MONTSERRATIAN, SOLEDAD MICHELE MD AWARE, CONTINUE TO MONITOR
--- NOTE | 2020-03-22 17:11 | NUR ---
RECEIVED CALL FROM [facility] WITH TRANSFER INFORMATION. PATIENT IS GOING TO [facility] WITH ETHNIC STUDIES PROFESSOR AT [address] ESTRADA MADE AWARE. ATTENDING NURSE THI AWARE.
--- NOTE | 2020-03-22 17:15 | NUR ---
EVAN FROM [facility] CALLED AND SAID PT DC TODAY TO [facility] IN [place], ADDRESSE AT [address], [place] [address], [address], REPORT AT [phone], F/U CARE MD HAM, MARILEE, EVAN SAID WILL ARRANGE TRASNPORTATION AT 2000 AND WILL CALL BACK FOR TRANSPORTATION SERVICE COMPANY, CN TAHMINA AWARE, PT AWARE, PT REFUSED TO HAVE WOUND PIC TAKEN PER DC POLICY, AWARE, CONTINUE TO MONITOR
[2020-03-22 17:22] VITALS: BP 155/86
--- NOTE | 2020-03-22 17:24 | NUR ---
PT APPEARED AGRESSIVE AND VERBALLY ABUSE STAFF WHEN NOTIFIED DCPLAN TO ASHLEE YENY, EXPLAINED TO PT THAT PT NEED A [facility] W/ [facility] AND MD RESTREPO TO DC D/T MEDICALLY STABLE, PT REFUSED WOUND PIC TAKEN PER DC POLICY, SOLEDAD MARTEL AWARE, JUSTA AWARE, CONTINUE TO MONITOR
--- NOTE | 2020-03-22 18:28 | NUR ---
KISHA VEGA CALLED FROM [place] R/T PT DC TO [facility] TODAY AT 1999, PER PRIYA BEARD, ADMISSION COORDINATOR AT [facility] SAID FACILITY TEMPORALITY DO NOT HAVE PRIVATE ROOM FOR PT D/T CONTACT ISO TODAY ([facility] PLANNED TO PUT PT IN ANOTHER ROOM W/ CHEMO PT AT THE FACILITY IN ) BUT WILL HAVE PRIVATE ROOM FOR PT TOMORROW, SOLEDAD MARTEL AWARE, PT AWARE, CONTINUE TO MONITOR
--- NOTE | 2020-03-22 18:40 | NUR ---
PT REPORTED US, PRN MED GIVEN PER MD ORDER, TOLERATED WELL, NO ASE NOTED, ALL NEEDS ADDRESSED, DR HECK AWARE OF DC ORDER HOLD D/T ARRANGEMENT FAIL, SOLEDAD DWYER AWARE, PT AWARE, CONTINUE TO MONITOR
--- NOTE | 2020-03-22 19:40 | NUR ---
PT IN UP IN BED, AWAKE, A/O TO PERSON AND PLACE. PT ABLE TO MAKE NEEDS KNOWN. NO C/O PAIN, NO ACUTE DISTRESS NOTED. RESP IS EVEN AND UNLABORED, NO COUGH, NO SOB OBSERVED. PT APPEARS TO BE IRRITABLE TELLING THE NURSE TO "LEAVE ME ALONE". WHEN BEING ASKED QUESTION OR ASKING PERMISION TO DO A QUICK ASSESSMENT, PT VERBALIZED "NO, NO, NO". DRESSING ON THE RIGHT FOOT NOTED WITH OLD RED STAINS. PT REFUSED TO SHOW BLE.NO IV ACCESS NOTED, PT ON MEDSURG. WILL CONT TO MONITOR. CALL LIGHT WITHIN EASY, BED TO LOWEST POSITION.
--- NOTE | 2020-03-22 21:00 | NUR ---
PT REFUSED VITALS SIGNS TO BE TAKEN WELL REFUSED BLOOD SUGAR CHECK. PT EDUCATED REGARDING THE BENEFITS AND IMPORTANCE, PT STILL REFUSED.
--- NOTE | 2020-03-22 21:55 | NUR ---
PT IN BED APPEARS TO BE IRRITABLE, REFUSED MEDICATIONS COLACE, SEROQUEL, MAG-OX, LANTUS AND APRESOLINE. PT EDUCATED ABOUT MEDICATIONS BENEFIT AND IMPORTANCE BUT STILL REFUISED.
--- NOTE | 2020-03-23 01:44 | NUR ---
PT IN REMIANED IN BED, APPEARS TO BE RESTING COMFORTABLY WITH EYES CLOSED. NO C/O PAIN, NO ACUTE DISTRESS NOTED. RESP IS EVEN AND UNLABORED. BED TO LOWEST POSITION, CALL LIGHT WITHIN REACH. WILL CONT TO MONITOR FOR CHANGES IN CONDITION.
[2020-03-23 05:27] VITALS: BP 98/57
--- NOTE | 2020-03-23 06:42 | NUR ---
PT IN BED AWAKE,APPEARS TO BE IRRITABLE. BS IS 198, PT REFUSED REG INSULIN COVERAGE PER [facility] HUMALOG 50/50, EXPLAINED BENEFIT AND IMPORTANCE OF THE MEDS, PT STILL REFUSED. APRESOLINE PO HELD FOR BP 98/57. PT CONT TO BE IRRITABLE AND MAD, CURSING AT NURSE AND SAYING DEROGATORY REMARKS. TYLENOL ES PO GIVEN FOR C/O 3/10 FOOT PAIN, WILL CONT TO MONITOR AND ENDORSE TO NEXT SHIFT NURSE.
--- NOTE | 2020-03-23 07:20 | NUR ---
RECEIVED REPORT FROM JANICE RN. PT IS AAOX4. PT IS MED SURGG STATUS. DENIES CHEST PAIN. PT IS ON RA, NO SOB OR DISTRESSS. LUNGS CTAB. PT REFUSING IV ACCESS. MD AWARE. PT DENIES PAIN AT THIS TIME. ALL COMFORT AND SAFETY MEASURES IN PLACE. BED IN LOW POSITION, 2 SIDE RAILS UP. CALL LIGHT WITH IN REACH. ALL QUESTIONS AND CONCERNS ADDRESSED. ALL NEEDS MET AT THIS TIME. WILL CONTINUE TO MONITOR PT.
[2020-03-23 08:28] VITALS: BP 112/57
--- NOTE | 2020-03-23 09:40 | NUR ---
IN TO SEE PT AND ADMINISTER SCHEDULED MEDICATIONS. PT REFUSING TO TAKE MEDICATIONS AND STATES "I DIDN'T SLEEP ALL NIGHT, I WANT TO SLEEP." PT EXPLAINED RX AND BENEFITS OR TREAMENT, NONE THE LESS, PT REFUSED. WILL CONTINUE TO MONITOR PT.
--- NOTE | 2020-03-23 12:15 | NUR ---
PT EDUCATED ON IMPORTANCE OF NOT AMBULATING, PT IS NONCOMPLIANT AND CONTINUES TO AMBULATE.
--- NOTE | 2020-03-23 12:40 | NUR ---
IN TO SEE PT AND DO BLOOD SUGAR CHECK. PT REFUSEING INSULIN AND MEDICATIONS. PT IS AGITATED. PT EDUCATED ON RISKS AND BENEFITS. ALL QUESTIONS AND CONCERNS ADDRESSED. WILL CONTINUE TO MONITOR PT.
[2020-03-23 13:19] VITALS: BP 116/71
[2020-03-23 13:29] VITALS: BP 116/71
--- NOTE | 2020-03-23 15:26 | NUR ---
IN TO SEE PT. PT SEEN BY PODIATRY DR NO. PT EDUCATED ON IMPORTANCE OF NOT AMBULATING, WOUND STATUS UPDATE, AND WOUND CARE. ALL QUESTIONS AND CONCERNS ADDRESSED. ALL NEEDS MET.
--- NOTE | 2020-03-23 15:47 | NUR ---
PER PRIMARY RN PT. IS NON-COMPLIANCE WEIGHT BEARING, PT. HAS BEEN WALKING AROUND, PER PRIMARY RN PT.ALSO REFUSE DRESSING CHANGE,LAST DRESSING CHANGE WAS 03/20/2020, RIGHT TMA SURGICAL WOUND SUTURES IN PLACE, LOOSE AND TANA-WOUND SKIN WHITE , MACERATION, MODERATE AMOUNT SANGENOUS DRAINAGE, LEFT 2ND TOE SURGICAL WOUND CLEAN AND DRY SUTURES IN PLACE.ALL ABOVE INFORMATION REPORT TO , AND DR. NO MADE AWARE THAT PT.WILL BE DISCHARGE TODAY PT. SEEN AND EXAMED BY , DPM RESIDENT, POC DISCUSSED AND NOW SHE IS REPORTING TO HER ATTENDING MANAGER VISUAL AND WAITING FOR NEW ORDER. PT IS RESTING IN BED COMFORTABLE AND NO COMPLAIN. CHARGE NURSE AND PRIMARY RN NOTIFIED ALL ABOVE INFORMATION.
--- NOTE | 2020-03-23 16:40 | NUR ---
IN TO SEE PT AND DO WOUND DRESSING CHANGE. WOUND CLEANSED W/ NS. ADAPTIC DRESSING SOAKED IN BETADINE APPLIED. ABD DRESSING APPLIED. CURLIX APPLIED. DRESSING CDI. PT TOLERATED WELL. ALL QUESTIONS AND CONCERNS ADDRESSED. WILL CONTINUE TO MONITOR PT.
--- NOTE | 2020-03-23 17:20 | NUR ---
IN TO SEE PT AND DISCUSSED TRANSFER. PT AGREED AND SIGNED TRANSFER ACKNOWLEDGEMENT. PT VERBALIZED UNDERSTANDING OF D/C INSTRUCTIONS. ID BANDS REMOVED. ALL QUESTIONS AND CONCERNS ADDRESSED. ALL NEEDS MET.
[2020-03-23 17:28] VITALS: BP 145/86
--- NOTE | 2020-03-23 17:30 | NUR ---
TRANSPORT ARRIVED TO TAKE PT. PT STABLE FOR D/C. ALL BELONGINGS SENT WITH PT. ALL QUESTIONS AND CONCERNS ADDRESSED.
== END 2020-03-23 17:39 | DRG 616 ==
LOC: ED 18:28 → MU 21:35 → DU 21:35 → MU 02-29 11:54 → DU 03-16 15:45 → MU 03-17 13:10
PROVIDERS: Emergency Medicine; Internal Medicine; Podiatrist; Student in an Organized Health Care Education/Training Program; ADMIT Family Medicine; ATTEND Family Medicine
PROC: 0Y6M0ZF Detachment at Right Foot, Partial 5th Ray, Open Approach (ICD-10-PCS; 2020-03-02)
PROC: 0Y6N0ZB Detachment at Left Foot, Partial 2nd Ray, Open Approach (ICD-10-PCS; principal; 2020-03-02 11:30)
DX: E11.69 Type 2 diabetes mellitus with other specified complication (principal); G93.41 Metabolic encephalopathy; E46 Unspecified protein-calorie malnutrition; M86.8X7 Other osteomyelitis, ankle and foot; D62 Acute posthemorrhagic anemia; N17.0 Acute kidney failure with tubular necrosis; E86.0 Dehydration; E11.9 Type 2 diabetes mellitus without complications; E83.42 Hypomagnesemia; E87.5 Hyperkalemia; E11.621 Type 2 diabetes mellitus with foot ulcer; L97.529 Non-pressure chronic ulcer of other part of left foot with unspecified severity; E11.51 Type 2 diabetes mellitus with diabetic peripheral angiopathy without gangrene; E11.40 Type 2 diabetes mellitus with diabetic neuropathy, unspecified; F29 Unspecified psychosis not due to a substance or known physiological condition; F03.90 Unspecified dementia, unspecified severity, without behavioral disturbance, psychotic disturbance, mood disturbance, and anxiety; Z20.828 Contact with and (suspected) exposure to other viral communicable diseases; Z91.19 Patient's noncompliance with other medical treatment and regimen; Z79.4 Long term (current) use of insulin; Z79.84 Long term (current) use of oral hypoglycemic drugs
CPT/HCPCS: 82962; 83880; 84439; 97110-GP; 97116-GP; 97530-GP; G0378; G0480; J0610; J0692; J1815; J1817; J1885; J2405; J2543; J2704; J2916; J3010; J3370; J3475; J3490; J7030; J7120; Q0092; U0003-CS

== ENCOUNTER 2020-05-04 17:36 | Inpatient (IN) | payer OTHER, MEDICAID ==
[~2020-05-04] VITALS: Ht 162.6 cm; Wt 68.0 kg
[~2020-05-04 17:36] MED LIST changes: +LANTI SQ
[2020-05-04 17:44] VITALS: Ht 162.6 cm; Wt 68.0 kg
[2020-05-04 18:54] LABS: PLATELET COUNT 333 x10^3mcL (130-400)
[2020-05-04 19:00] LABS: RED CELL DISTRIBUTION WIDTH 17.9 % (11.5-14.5)
[2020-05-04 19:02] LABS: CALCIUM 8.4 mg/dL (8.5-10.1); CARBON DIOXIDE 25.3 mmol/L (21-32); CHLORIDE SERUM 100 mmol/L (98-107); GFR1 > 60 mL/min; GLUCOSE SERUM 257 mg/dL (74-106); POTASSIUM SERUM 4.4 mmol/L (3.5-5.1); SODIUM SERUM 133 mmol/L (136-145)
[2020-05-04 19:06] LABS: ALKALINE PHOSPHATASE 295 U/L (46-116); ALT/SGPT 15 U/L (16-63); AST/SGOT 18 U/L (15-37); BILIRUBIN TOTAL 0.1 mg/dL (0.20-1.00); TOTAL PROTEIN, SERUM 7.7 g/dL (6.4-8.2)
[2020-05-04 19:07] LABS: ALBUMIN 1.6 g/dL (3.4-5.0)
[2020-05-04 19:26] LABS: BAND NEUTROPHIL 5 % (0-10); BASOPHIL 0 % (0-2); MONOCYTE 5 % (0-7); SEGMENTED NEUTROPHILS 82 % (37-75); rbc morphology (normal/abnorm) ABNORMAL (NORMAL)
[2020-05-04 19:27] LABS: PLATELET MORPHOLOGY PLATELETS NORMAL; ovalocyte/elliptocyte 1+; target cell (codocyte) 1+
[2020-05-04] MEDS ORDERED: ACETAMINOPHEN325 M3 PO (21:34)
[2020-05-04] MEDS ORDERED: ATORVASTATIN CA20 M1 (21:35)
[2020-05-04] MEDS ORDERED: DOCUSATE SOD100 M1 (21:35)
[2020-05-04] MEDS ORDERED: GLIPIZIDE XL5 M2 (21:36)
[2020-05-04] MEDS ORDERED: DULCOLAX10 M1 (21:36)
[2020-05-04] MEDS ORDERED: GOOD SENSE400 MG/5 M PO (21:37)
[2020-05-04] MEDS ORDERED: INSULIN SYRING1 EA29 (21:37)
[2020-05-05] VITALS (7 sets, daily range): BP systolic 98–157; BP diastolic 52–89
[2020-05-05 07:12] LABS: PLATELET COUNT 300 x10^3mcL (130-400)
[2020-05-05 07:30] LABS: CALCIUM 7.8 mg/dL (8.5-10.1); CHLORIDE SERUM 101 mmol/L (98-107); CREATININE SERUM 0.8 mg/dL (0.7-1.3); GFR1 > 60 mL/min; GLUCOSE SERUM 219 mg/dL (74-106); POTASSIUM SERUM 4.2 mmol/L (3.5-5.1); SODIUM SERUM 135 mmol/L (136-145)
[2020-05-05 07:43] LABS: RED CELL DISTRIBUTION WIDTH 17.7 % (11.5-14.5)
[2020-05-05 10:36] LABS: BAND NEUTROPHIL 4 % (0-10); MONOCYTE 6 % (0-7); SEGMENTED NEUTROPHILS 78 % (37-75); rbc morphology (normal/abnorm) ABNORMAL (NORMAL)
[2020-05-05 10:38] LABS: PLATELET MORPHOLOGY PLATELETS NORMAL; burr cell (echinocyte) 1+
== END 2020-05-06 00:39 | disposition short-term general hospital (02) | DRG 853 ==
LOC: ED 17:36 → DU 21:18
PROVIDERS: Emergency Medicine; ADMIT Family Medicine; ATTEND Family Medicine
PROC: 0Q9N0ZZ Drainage of Right Metatarsal, Open Approach (ICD-10-PCS; principal; 2020-05-05)
DX: A41.9 Sepsis, unspecified organism (principal); M72.6 Necrotizing fasciitis; A48.0 Gas gangrene; N17.0 Acute kidney failure with tubular necrosis; L97.419 Non-pressure chronic ulcer of right heel and midfoot with unspecified severity; L03.115 Cellulitis of right lower limb; E11.52 Type 2 diabetes mellitus with diabetic peripheral angiopathy with gangrene; E87.1 Hypo-osmolality and hyponatremia; Z20.828 Contact with and (suspected) exposure to other viral communicable diseases; R65.20 Severe sepsis without septic shock; I10 Essential (primary) hypertension; Z89.421 Acquired absence of other right toe(s); D64.9 Anemia, unspecified; E11.65 Type 2 diabetes mellitus with hyperglycemia; E11.621 Type 2 diabetes mellitus with foot ulcer; Z91.19 Patient's noncompliance with other medical treatment and regimen; F29 Unspecified psychosis not due to a substance or known physiological condition
CPT/HCPCS: 82962; G0378; J1815; J2250; J2543; J3370; J3490; J7030; J7050; Q0092